=== PATIENT | female | born 1945 | race Caucasian/White ===

== ENCOUNTER 2020-05-19 11:14 | Inpatient (IN) ==
--- NOTE | 2020-05-19 11:31 | Emergency Department Note ---
Fall HPI General Chief Complaint: Fall Stated Complaint: Fall, left leg and hip pain Time Seen by Provider: 05/19/20 11:26 Source: patient, EMS and RN notes reviewed Mode of arrival: EMS History of Present Illness HPI Narrative: Narrative: This patient says she got walking too fast and slipped and fell onto her left hip area. She has pain in this area. Did not hit her head neck or other body part. MD Complaint: fall Onset (ago): minute(s) Fall From: standing Fall Witnessed: yes, by bystander Place Fall Occurred: skilled nursing/SNF Loss of Consciousness: none Prolonged Down Time?: no Symptoms Prior to Fall: none Context: tripped/slipped Location of injury - extremities: Left: thigh Severity: moderate Quality: aching Associated symptoms (after fall): Reports denies Related Data Home Medications Medication Instructions Recorded Confirmed atorvastatin 40 mg tablet 40 mg PO QHS 09/20/19 11/02/19 trazodone 100 mg tablet 100 mg PO QHS 09/20/19 11/02/19 Previous Rx's Medication Instructions Recorded cholecalciferol (vitamin D3) 50 2,000 unit PO BID #60 cap 12/28/15 mcg (2,000 unit) capsule BiPAP w/Supplies #1 yr 12/27/16 budesonide-formoterol HFA 160 2 inh INHALATION .COMPLEX #10.2 g 07/04/17 mcg-4.5 mcg/actuation aerosol inhaler ergocalciferol (vitamin D2) 1,250 50,000 unit PO QWEEK #4 cap 07/30/17 mcg (50,000 unit) capsule clopidogrel 75 mg tablet 75 mg PO QDAY #30 tab 09/05/17 oxybutynin chloride 10 mg 10 mg PO QDAY #30 tab 10/23/17 tablet,extended release 24 hr omeprazole 40 mg capsule,delayed 40 mg PO QDAY #90 cap 01/08/18 release montelukast 10 mg tablet 10 mg PO QDAY #90 tab 01/14/18 losartan 25 mg tablet 25 mg PO QDAY #90 tab 01/30/18 omega-3 acid ethyl esters 1 gram See Rx Instructions .ROUTE 07/21/19 capsule .COMPLEX #120 cap duloxetine 60 mg capsule,delayed 60 mg PO QDAY #30 cap 09/16/19 release hydroxyzine pamoate 25 mg capsule 25 mg PO TID PRN #60 cap 10/13/19 duloxetine 30 mg capsule,delayed 30 mg PO QDAY #30 cap 10/26/19 release memantine 5 mg tablet 5 mg PO BID #60 tab 10/26/19 clonazepam 0.5 mg tablet 0.5 mg PO QID #120 tab 11/02/19 Allergies Allergy/AdvReac Type Severity Reaction Status Date / Time aspirin Allergy Unknown Unknown Verified 11/02/19 11:19 Penicillins Allergy Unknown Unknown Verified 11/02/19 11:19 Sulfa (Sulfonamide Allergy Unknown Unknown Verified 11/02/19 11:19 Antibiotics) codeine derivatives Allergy Unknown Unknown Uncoded 10/26/19 13:23 Review of Systems ROS ROS Narrative: Narrative: All systems ED: reviewed and negative except as stated. PFS Narrative Patient History Narrative: Narrative: Medical/Surgical/Family History All Active Problems (Updated 05/19/20 @ 13:54 by Rogerio Mayfield MD) Panic disorder (Acute) Closed fracture of left hip (Acute) Generalized anxiety disorder (Acute) Major depression, recurrent, chronic (Acute) Depression, major, in partial remission (Acute) Parkinsonian syndrome (Acute) Tardive dyskinesia (Acute) Depression with anxiety (Chronic) Depression with anxiety (Chronic) Cervical disc disorder (Chronic) Orthostatic hypotension (Acute) Herpes zoster (Acute) History of transient ischemic attack (TIA) (Acute) Peripheral vascular disease (Acute) Constipation (Acute) Depression (Chronic) Major depression, chronic (Chronic) Sinusitis (Acute) Bronchitis (Acute) Chronic UTI (Chronic) Post-menopausal (Acute) Contusion, shoulder or upper arm (Acute) Central sleep apnea (Chronic) Obstructive sleep apnea (Chronic) Candidiasis of vagina (Chronic) Disc disorder of lumbar region (Chronic) History of colonoscopy (Chronic 06/26/15) Hypertension, essential (Chronic) Hyperlipemia (Chronic) Gastroesophageal reflux (Chronic) Depressive disorder (Chronic) DJD (degenerative joint disease), cervical (Chronic) Carpal tunnel syndrome (Chronic) Asthma (Chronic) Medical History (Updated 05/19/20 @ 13:54 by Rogerio Mayfield MD) Asthma (Chronic) Candidiasis of vagina (Chronic) Carpal tunnel syndrome (Chronic) (05/17/14-Joaquín) Central sleep apnea (Chronic) Depressive disorder (Chronic) 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 Declines surgery for now Hyperlipemia (Chronic) Hypertension, essential (Chronic) Obstructive sleep apnea (Chronic) Pneumonia (Resolved) Sinusitis (Resolved) Surgical History History of carpal tunnel repair (Resolved 07/26/13) Right History of colonoscopy (Chronic 06/26/15) tubular adenoma Family History Mother , age 86 Parkinson's Disease Father , age 93 Primary malignant neoplasm of lung metastatic to other site Social History Smoking Status: Former smoker Alcohol Intake Frequency: holiday/special occasion only Exam Narrative Narrative: Narrative: She has mild diffuse tenderness about the left hip and left groin region. Head Head: Present atraumatic, normocephalic and normal inspection Eye Eye: Present normal appearance and EOMI; Absent scleral icterus and conjunctival injection ENT ENT: Present normal exam, normal oropharynx and mucous membranes dry Neck Neck: Present normal inspection and full ROM Chest Chest: Present normal inspection and symmetric chest wall rise Respiratory Respiratory: Present normal lung sounds bilaterally; Absent respiratory distress, rales/crackles and wheezes Cardiovascular Cardiovascular: Present regular rate, normal rhythm and normal heart sounds Adbominal Abdominal: Present soft; Absent distention and tenderness Neurological Neurological: Present alert Psychiatric Psychiatric: Present normal affect Skin Skin: Present warm (WNL) and dry; Absent diaphoresis Course Vital Signs Vital signs: Vital Signs Temperature 98.6 F 05/19/20 11:15 Pulse Rate 100 H 05/19/20 11:15 Respiratory Rate 16 05/19/20 11:15 Blood Pressure 151/62 05/19/20 11:15 Pulse Oximetry (%) 97 05/19/20 11:15 Temperature 98.6 F 05/19/20 11:15 Pulse Rate 76 05/19/20 13:42 Respiratory Rate 20 05/19/20 13:42 Blood Pressure 169/95 05/19/20 13:42 Pulse Oximetry (%) 97 05/19/20 13:42 [facility] MDM Narrative Medical decision making narrative: Narrative: I discussed case with Dr. Cui the orthopedist and Dr. Lewis the hospitalist and she will be admitted to the hospital for surgery this afternoon Lab Data Lab results reviewed: Yes I reviewed the patient's lab results. Lab results narrative: Lab work and urine were not very remarkable Result diagrams: 05/19/20 12:17 05/19/20 12:17 Labs: Lab Results 05/19/20 05/19/20 05/19/20 Range/Units 12:12 12:17 12:17 WBC 8.9 (4.5-11.0) K/mcL RBC 4.59 (4.00-5.20) M/mcL Hgb 13.5 (12.0-15.0) g/dL Hct 41.7 (36.0-48.0) % MCV 90.8 (80.0-100.0) fL MCH 29.4 (26.0-34.0) pg MCHC 32.4 (31.0-36.0) g/dL RDW 13.2 (11.5-14.5) % Plt Count 267 (140-440) K/mcL MPV 9.5 (7.4-10.4) fL Neut % (Auto) 78.7 H (38.0-78.0) % Lymph % (Auto) 14.7 L (15.0-49.0) % [place] % (Auto) 5.5 (1.0-12.0) % Eos % (Auto) 0.8 (0.0-7.0) % Baso % (Auto) 0.3 (0.0-2.0) % Lymph # (Auto) 1.31 L (1.50-4.80) K/mcL [place] # (Auto) 0.49 (0.10-0.90) K/mcL Eos # (Auto) 0.07 (0.00-0.70) K/mcL Baso # (Auto) 0.03 (0.00-0.20) K/mcL Absolute Neutrophils 6.99 (1.80-8.00) K/mcL Sodium 138 (133-145) mmol/L Potassium 3.5 (3.3-5.1) mmol/L Chloride 98 (96-108) mmol/L Carbon Dioxide 32 H (22-30) mmol/L Anion Gap 8.0 (8.0-16.0) BUN 7 L (8-23) mg/dL Creatinine 0.8 (0.6-1.1) mg/dL GFR Calculation 71 Glucose 94 (70-105) mg/dL Calcium 10.3 (8.6-10.4) mg/dL Total Bilirubin 0.3 (0.1-1.0) mg/dL AST 21 (<32) U/L ALT 20 (<40) U/L Alkaline Phosphatase 99 (39-117) U/L Total Protein 7.1 (5.9-8.4) gm/dL Albumin 4.6 (3.2-5.2) gm/dL Globulin 2.5 (2.2-3.7) gm/dL Albumin/Globulin Ratio 1.8 (1.0-2.3) Urine Color Straw Urine Appearance Clear (Clear) Urine pH 8.0 (5.0-9.0) Ur Specific [place] 1.005 (1.000-1.035) Urine Protein Negative (Negative) mg/dL Urine Glucose (UA) Negative (Negative) mg/dL Urine Ketones Negative (Negative) mg/dL Urine Occult Blood Negative (Negative) mg/dL Urine Nitrate Negative (Negative) Urine Bilirubin Negative (Negative) mg/dL Urine Urobilinogen Negative mg/dL Ur Leukocyte Esterase 25 A (Negative) /ug Urine RBC < 1 (0-1) /hpf Urine WBC 4 (0-4) /hpf Ur Squamous Epith Cells 1 (0-4) /hpf Urine Bacteria None (0) /hpf Urine Mucus Few A (None) /hpf Ur Culture Indicated? No Radiology Data Radiology results narrative: The left hip does show a nondisplaced femoral neck fracture chest x-ray was negative EKG Data EKG #1: EKG attestation: Yes I reviewed and interpreted this EKG. and Yes There are no EKG findings of acute coronary syndrome EKG shows normal: sinus rhythm Rate: normal Rhythm: NSR Discharge Plan Patient/Caregiver Discharge Instructions Pt seen by INVOICE CHECKER/PA only: No Clinical Impression: Closed fracture of left hip Patient Disposition: Xfer As Inpt ([facility]) Follow up with: Jaswinder Mac MD [Primary Care Provider] - Prescriptions: No Action atorvastatin 40 mg tablet 40 mg PO QHS RF: 0 trazodone 100 mg tablet 100 mg PO QHS RF: 0 omega-3 acid ethyl esters [Lovaza] 1 gram capsule See Rx Instructions .ROUTE .COMPLEX Qty: 120 RF: 0 clonazepam 0.5 mg tablet 0.5 mg PO QID Qty: 120 RF: 0 duloxetine 30 mg capsule,delayed release(DR/EC) 30 mg PO QDAY Qty: 30 RF: 0 memantine 5 mg tablet 5 mg PO BID Qty: 60 RF: 0 hydroxyzine pamoate [Vistaril] 25 mg capsule 25 mg PO TID PRN (Reason: anxiety) Qty: 60 RF: 0 cholecalciferol (vitamin D3) 2,000 unit capsule 2,000 unit PO BID Qty: 60 RF: 0 (DME) BiPAP w/Supplies Qty: 1 RF: 0 budesonide-formoterol 160-4.5 mcg/actuation HFA aerosol inhaler 2 inh INHALATION .COMPLEX Qty: 10.2 RF: 12 ergocalciferol (vitamin D2) 50,000 unit capsule 50,000 unit PO QWEEK Qty: 4 RF: 12 clopidogrel 75 mg tablet 75 mg PO QDAY Qty: 30 RF: 12 oxybutynin chloride 10 mg tablet extended release 24hr 10 mg PO QDAY Qty: 30 RF: 12 omeprazole 40 mg capsule,delayed release(DR/EC) 40 mg PO QDAY Qty: 90 RF: 3 montelukast 10 mg tablet 10 mg PO QDAY Qty: 90 RF: 3 duloxetine 60 mg capsule,delayed release(DR/EC) 60 mg PO QDAY Qty: 30 RF: 2 losartan 25 mg tablet 25 mg PO QDAY Qty: 90 RF: 3
[2020-05-19] MEDS ORDERED: HYDROmorphone 0.5 MG/0.5 ML SYRINGE IV PRN ×2 (11:56→16:24)
--- NOTE | 2020-05-19 12:14 | XRay Report ---
INDICATION: trauma TECHNIQUE: AP pelvis. AP and crosstable lateral left hip COMPARISON: None. FINDINGS: Transcervical left femoral neck fracture. There is slight superior subluxation. Pelvis and right hip are negative. No other fractures. Sacrum is negative IMPRESSION: Transcervical left hip fracture Interpreted and Authenticated by: Nghia Mcdermott 05/19/20
--- NOTE | 2020-05-19 12:15 | XRay Report ---
INDICATION: pre surgery TECHNIQUE: AP portable semiupright chest x-ray COMPARISON: None FINDINGS: Lungs:Linear densities at the left lung base are probably stable since 2016. Appearance is consistent with mild scarring. Lungs are otherwise negative. No parenchymal consolidation. No discrete mass. Heart, vascular:No significant cardiomegaly. Pulmonary vascularity is normal. No pulmonary edema or pulmonary congestion Mediastinum, damián:No mediastinal widening. No hilar mass Pleura:No pleural fluid. No pleural-based mass or calcification Skeletal:Negative. IMPRESSION: 1. Findings consistent with mild left basilar scarring 2. No acute abnormality Interpreted and Authenticated by: Nghia Mcdermott 05/19/20
[2020-05-19] MEDS: LACTATED RINGERS 1,000 ML IV SCH ×3 (12:24→17:48)
[2020-05-19 12:58] LABS: Appearance,Urine CLEAR (Clear); Bilirubin,Urine Negative (Negative); Color,Urine STRAW; Culture Indicated,Urine No; Glucose,Urine (UA) Negative (Negative); Ketones,Urine Negative (Negative); Leukocyte Esterase,Urine 25 /ug (Negative); Mucus,Urine FEW /hpf; Nitrate,Urine Negative (Negative); Protein,Urine Negative (Negative); Specific Gravity,Urine 1.005 (1.000-1.035); Urine Blood Negative (Negative); Urine RBC < 1 /hpf (0-1); Urine Squamous Epithelial Cell 1 /hpf (0-4); Urine WBC 4 /hpf (0-4); Urobilinogen,Urine Negative
[2020-05-19 13:04] LABS: Basophils # (Auto) 0.03 K/mcL (0.00-0.20); Basophils % (Auto) 0.3 % (0.0-2.0); Eosinophils # (Auto) 0.07 K/mcL (0.00-0.70); Eosinophils % (Auto) 0.8 % (0.0-7.0); Hematocrit 41.7 % (36.0-48.0); Hemoglobin 13.5 g/dL (12.0-15.0); Lymphocytes # (Auto) 1.31 K/mcL (1.50-4.80); Lymphocytes % (Auto) 14.7 % (15.0-49.0); Mean Cell Volume 90.8 fL (80.0-100.0); Mean Corpuscular HGB Conc 32.4 g/dL (31.0-36.0); Mean Platelet Volume 9.5 fL (7.4-10.4); Monocytes # (Auto) 0.49 K/mcL (0.10-0.90); Monocytes % (Auto) 5.5 % (1.0-12.0); Neutrophils % (Auto) 78.7 % (38.0-78.0); Platelet Count 267 K/mcL (140-440); RBC 4.59 M/mcL (4.00-5.20); Red Cell Distribution Width 13.2 % (11.5-14.5); WBC 8.9 K/mcL (4.5-11.0)
[2020-05-19 13:22] LABS: ALT/SGPT 20 U/L (<40); AST/SGOT 21 U/L (<32); Albumin 4.6 gm/dL (3.2-5.2); Albumin/Globulin Ratio 1.8 (1.0-2.3); Alkaline Phosphatase 99 U/L (39-117); Bilirubin,Total 0.3 mg/dL (0.1-1.0); Blood Urea Nitrogen 7 mg/dL (8-23); Calcium 10.3 mg/dL (8.6-10.4); Carbon Dioxide 32 mmol/L (22-30); Chloride 98 mmol/L (96-108); Globulin 2.5 gm/dL (2.2-3.7); Glomerular Filtration Rate 71; Glucose 94 mg/dL (70-105)
--- NOTE | 2020-05-19 13:56 | Internal Med History&Physical ---
HPI History of Present Illness Patient information: Note initiated : 05/19/20 at 1:56 pm Service Date, if different from initiated Date: [] Patient: Mayra Chacon a 74 y/o F admitted on for Fall - Lt Leg/Hip Pain. Chief Complaint: Fall/left hip pain History of present illness: Ms. Chacon is a 74 year old F with a history of COPD/anxiety/TIA/HTN/dementia who presents to the ER following a mechanical fall at home. Patient apparently tripped and fell landing on her left side experiencing severe pain. She was brought into the ER for evaluation. Patient denies any precipitating events including lightheadedness, thunderclap headache, double vision or loss of consciousness or seizure episode. Initial work-up in the ER was consistent with left hip fracture. Orthopedic was consulted and patient was taken to surgery from ER. Hospitalist service was consulted postoperative for management of medical issues/admission for continued care Patient was seen immediately postoperative in stable state. She is alert and able to answer questions. She endorses history as above. She denies chest pain, lightheadedness, unilateral weakness. She denies recent hospitalization. She denies fever chills or Covid exposure Review of systems 10 point review system was performed and is negative except for ones discussed above PFSH PFSH All Active Problems (Updated 05/19/20 @ 13:54 by Rogerio Mayfield MD) Panic disorder (Acute) Closed fracture of left hip (Acute) Generalized anxiety disorder (Acute) Major depression, recurrent, chronic (Acute) Depression, major, in partial remission (Acute) Parkinsonian syndrome (Acute) Tardive dyskinesia (Acute) Depression with anxiety (Chronic) Depression with anxiety (Chronic) Cervical disc disorder (Chronic) Orthostatic hypotension (Acute) Herpes zoster (Acute) History of transient ischemic attack (TIA) (Acute) Peripheral vascular disease (Acute) Constipation (Acute) Depression (Chronic) Major depression, chronic (Chronic) Sinusitis (Acute) Bronchitis (Acute) Chronic UTI (Chronic) Post-menopausal (Acute) Contusion, shoulder or upper arm (Acute) Central sleep apnea (Chronic) Obstructive sleep apnea (Chronic) Candidiasis of vagina (Chronic) Disc disorder of lumbar region (Chronic) History of colonoscopy (Chronic 06/26/15) Hypertension, essential (Chronic) Hyperlipemia (Chronic) Gastroesophageal reflux (Chronic) Depressive disorder (Chronic) DJD (degenerative joint disease), cervical (Chronic) Carpal tunnel syndrome (Chronic) Asthma (Chronic) Medical History (Updated 05/19/20 @ 13:54 by Rogerio Mayfield MD) Asthma (Chronic) Candidiasis of vagina (Chronic) Carpal tunnel syndrome (Chronic) (05/17/14-Joaquín) Central sleep apnea (Chronic) Depressive disorder (Chronic) 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 Declines surgery for now Hyperlipemia (Chronic) Hypertension, essential (Chronic) Obstructive sleep apnea (Chronic) Pneumonia (Resolved) Sinusitis (Resolved) Surgical History History of carpal tunnel repair (Resolved 07/26/13) Right History of colonoscopy (Chronic 06/26/15) tubular adenoma Family History Mother , age 86 Parkinson's Disease Father , age 93 Primary malignant neoplasm of lung metastatic to other site Social History (Updated 11/02/19 @ 12:41 by Ginna Richards DO) smoking status: Former smoker quit status: not considering quitting alcohol intake frequency: holiday/special occasion only MEDS/ALLERGIES Home Medications and Allergies Home Medications Medication Instructions Recorded Confirmed Type cholecalciferol (vitamin D3) 50 2,000 unit PO BID #60 cap 12/28/15 05/19/20 Rx mcg (2,000 unit) capsule BiPAP w/Supplies #1 yr 12/27/16 11/02/19 Rx budesonide-formoterol HFA 160 2 inh INHALATION .COMPLEX #10.2 g 07/04/17 05/19/20 Rx mcg-4.5 mcg/actuation aerosol inhaler ergocalciferol (vitamin D2) 1,250 50,000 unit PO QWEEK #4 cap 07/30/17 11/02/19 Rx mcg (50,000 unit) capsule clopidogrel 75 mg tablet 75 mg PO QDAY #30 tab 09/05/17 05/19/20 Rx oxybutynin chloride 10 mg 10 mg PO QDAY #30 tab 10/23/17 05/19/20 Rx tablet,extended release 24 hr omeprazole 40 mg capsule,delayed 40 mg PO QDAY #90 cap 01/08/18 05/19/20 Rx release montelukast 10 mg tablet 10 mg PO QDAY #90 tab 01/14/18 05/19/20 Rx losartan 25 mg tablet 25 mg PO QDAY #90 tab 01/30/18 05/19/20 Rx omega-3 acid ethyl esters 1 gram See Rx Instructions .ROUTE 07/21/19 11/02/19 Rx capsule .COMPLEX #120 cap duloxetine 60 mg capsule,delayed 60 mg PO QDAY #30 cap 09/16/19 05/19/20 Rx release atorvastatin 40 mg tablet 40 mg PO QHS 09/20/19 05/19/20 History trazodone 100 mg tablet 100 mg PO QHS 09/20/19 05/19/20 History hydroxyzine pamoate 25 mg capsule 25 mg PO TID PRN #60 cap 10/13/19 05/19/20 Rx duloxetine 30 mg capsule,delayed 30 mg PO QDAY #30 cap 10/26/19 11/02/19 Rx release memantine 5 mg tablet 5 mg PO BID #60 tab 10/26/19 05/19/20 Rx clonazepam 0.5 mg tablet 0.5 mg PO QID #120 tab 11/02/19 05/19/20 Rx hydrocodone-acetaminophen 1 - 2 tab PO Q4H PRN #60 tab 05/19/20 Rx Allergies Allergy/AdvReac Type Severity Reaction Status Date / Time aspirin Allergy Unknown Unknown Verified 11/02/19 11:19 Penicillins Allergy Unknown Unknown Verified 11/02/19 11:19 Sulfa (Sulfonamide Allergy Unknown Unknown Verified 11/02/19 11:19 Antibiotics) codeine derivatives Allergy Unknown Unknown Uncoded 10/26/19 13:23 EXAM Constitutional Vitals: Temp Pulse Resp BP Pulse Ox 98.6 F 76 20 169/95 97 05/19/20 11:15 05/19/20 13:42 05/19/20 13:42 05/19/20 13:42 05/19/20 13:42 Immediately postop drowsy nondistressed Head normocephalic Oral cavity moist No ear nose discharge Eye movement symmetrical Neck supple no lymphadenopathy S1-S2 occasionally irregular Nonlabored breathing Nondistended nontender abdomen Left hip postop dressing. Lower extremity no cyanosis clubbing or joint swelling Skin no suspicious lesion Psych slightly drowsy but responds to verbal commands. No hallucinations Neuro normal higher function DATA Data Completed and Pending Labs: Labs from last 24 hours 05/19/20 05/19/20 05/19/20 12:17 12:17 12:12 WBC 8.9 RBC 4.59 Hgb 13.5 Hct 41.7 MCV 90.8 MCH 29.4 MCHC 32.4 RDW 13.2 Plt Count 267 MPV 9.5 Neut % (Auto) 78.7 H Lymph % (Auto) 14.7 L [place] % (Auto) 5.5 Eos % (Auto) 0.8 Baso % (Auto) 0.3 Lymph # (Auto) 1.31 L [place] # (Auto) 0.49 Eos # (Auto) 0.07 Baso # (Auto) 0.03 Absolute Neutrophils 6.99 Sodium 138 Potassium 3.5 Chloride 98 Carbon Dioxide 32 H Anion Gap 8.0 BUN 7 L Creatinine 0.8 GFR Calculation 71 Glucose 94 Calcium 10.3 Total Bilirubin 0.3 AST 21 ALT 20 Alkaline Phosphatase 99 Total Protein 7.1 Albumin 4.6 Globulin 2.5 Albumin/Globulin Ratio 1.8 Urine Color Straw Urine Appearance Clear Urine pH 8.0 Ur Specific [place] 1.005 Urine Protein Negative Urine Glucose (UA) Negative Urine Ketones Negative Urine Occult Blood Negative Urine Nitrate Negative Urine Bilirubin Negative Urine Urobilinogen Negative Ur Leukocyte Esterase 25 A Urine RBC < 1 Urine WBC 4 Ur Squamous Epith Cells 1 Urine Bacteria None Urine Mucus Few A Ur Culture Indicated? No A/P Narrative A/P Narrative: * Left hip fracture-immediate postop. Managed per orthopedics. * Pain management-per orthopedics Hospitalist consult for management of medical issues * History of hypertension continue losartan * History depressio/anxiety-continue clonazepam/duloxetine/trazodone * GERD continue GI * History dementia continue memantine * History of reactive disease continue bronchodilators * History of TIA continue statin/Plavix(start 24-hour postoperative) * Prophylaxis as per orthopedics Plan * Continue pre-existing medical condition management on home meds as above * Postoperative care/pain management/DVT prophylaxis as per orthopedics * Aggressive postoperative rehab * Case management to coordinate placement/discharge planning Time Spent With Patient Time: Total time spent is greater than 50% in coordination of care (as documented) at patient's floor/unit and/or counseling patient:
--- NOTE | 2020-05-19 14:29 | Orthopedic History & Physical ---
HPI History of Present Illness Patient information: Note initiated : 05/19/20 at 2:12 pm Service Date, if different from initiated Date: [] Patient: Mayra Chacon a 74 y/o F admitted on for Fall - Lt Leg/Hip Pain. Chief Complaint: [s/p fall w/ left hip fracture ] History of present illness: Ms. Chacon is a 74 year old female who was ambu lating at her own home when she experienced a mechanical fall striking her left hip. She denies head strike or loss of conciousness, dizziness or syncope. She is a former smoker having quit in july of last year and occasionally uses alcohol. She denies chronic health conditions, however medication list includes Plavix. Mayra is not usre why she takes plavix and denies hx of stroke, atrial fibrillation, blood clots or stent placement. On exam the patient is resting in bed in discomfort and some mild distress over the possibility she "may lose her apartment. patient oropharynx is moist non-swollen and non-erythemematous. Neck is supple without JVD Heart is regular rythum without gallops and lungs are clear to auscultation bilaterally. patient is able to move all extremities and all four are neurovascularly intact. The left lower extremity ROM is limited by pain and is tender to palpation about the left hip. skin is warm dry and without echymosis. X-rays obtained in the emergency room demonstrate a midcervical fracture of the left hip. Plan is for open reduction internal fixation of the left hip operatively by Dr. Chao this afternoon via percutaneous hip nail procedure. The patient was presented with options for management including non-operative and ORIF. The patient is currently interested in surgery with the above plan which will occur emergently. Surgical risks were explained to Mayra including pain, bleeding , infection, implant failure, need for further surgery, blood clots including pulmonary embolus and DVT, pulmonary, cardiac and stroke. Also anesthesia reactions and including or not waking from surgery. The patient understands these risks and wishes to proceed. PFSH PFSH All Active Problems (Updated 05/19/20 @ 13:54 by Rogerio Mayfield MD) Panic disorder (Acute) Closed fracture of left hip (Acute) Generalized anxiety disorder (Acute) Major depression, recurrent, chronic (Acute) Depression, major, in partial remission (Acute) Parkinsonian syndrome (Acute) Tardive dyskinesia (Acute) Depression with anxiety (Chronic) Depression with anxiety (Chronic) Cervical disc disorder (Chronic) Orthostatic hypotension (Acute) Herpes zoster (Acute) History of transient ischemic attack (TIA) (Acute) Peripheral vascular disease (Acute) Constipation (Acute) Depression (Chronic) Major depression, chronic (Chronic) Sinusitis (Acute) Bronchitis (Acute) Chronic UTI (Chronic) Post-menopausal (Acute) Contusion, shoulder or upper arm (Acute) Central sleep apnea (Chronic) Obstructive sleep apnea (Chronic) Candidiasis of vagina (Chronic) Disc disorder of lumbar region (Chronic) History of colonoscopy (Chronic 06/26/15) Hypertension, essential (Chronic) Hyperlipemia (Chronic) Gastroesophageal reflux (Chronic) Depressive disorder (Chronic) DJD (degenerative joint disease), cervical (Chronic) Carpal tunnel syndrome (Chronic) Asthma (Chronic) Medical History (Updated 05/19/20 @ 13:54 by Rogerio Mayfield MD) Asthma (Chronic) Candidiasis of vagina (Chronic) Carpal tunnel syndrome (Chronic) (05/17/14-Joaquín) Central sleep apnea (Chronic) Depressive disorder (Chronic) 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 Declines surgery for now Hyperlipemia (Chronic) Hypertension, essential (Chronic) Obstructive sleep apnea (Chronic) Pneumonia (Resolved) Sinusitis (Resolved) Surgical History History of carpal tunnel repair (Resolved 07/26/13) Right History of colonoscopy (Chronic 06/26/15) tubular adenoma Family History Mother , age 86 Parkinson's Disease Father , age 93 Primary malignant neoplasm of lung metastatic to other site Social History (Updated 11/02/19 @ 12:41 by Ginna Richards DO) smoking status: Former smoker quit status: not considering quitting alcohol intake frequency: holiday/special occasion only MEDS/ALLERGIES Home Medications and Allergies Home Medications Medication Instructions Recorded Confirmed Type cholecalciferol (vitamin D3) 50 2,000 unit PO BID #60 cap 12/28/15 05/19/20 Rx mcg (2,000 unit) capsule BiPAP w/Supplies #1 yr 12/27/16 11/02/19 Rx budesonide-formoterol HFA 160 2 inh INHALATION .COMPLEX #10.2 g 07/04/17 05/19/20 Rx mcg-4.5 mcg/actuation aerosol inhaler ergocalciferol (vitamin D2) 1,250 50,000 unit PO QWEEK #4 cap 07/30/17 11/02/19 Rx mcg (50,000 unit) capsule clopidogrel 75 mg tablet 75 mg PO QDAY #30 tab 09/05/17 05/19/20 Rx oxybutynin chloride 10 mg 10 mg PO QDAY #30 tab 10/23/17 05/19/20 Rx tablet,extended release 24 hr omeprazole 40 mg capsule,delayed 40 mg PO QDAY #90 cap 01/08/18 05/19/20 Rx release montelukast 10 mg tablet 10 mg PO QDAY #90 tab 01/14/18 05/19/20 Rx losartan 25 mg tablet 25 mg PO QDAY #90 tab 01/30/18 05/19/20 Rx omega-3 acid ethyl esters 1 gram See Rx Instructions .ROUTE 07/21/19 11/02/19 Rx capsule .COMPLEX #120 cap duloxetine 60 mg capsule,delayed 60 mg PO QDAY #30 cap 09/16/19 05/19/20 Rx release atorvastatin 40 mg tablet 40 mg PO QHS 09/20/19 05/19/20 History trazodone 100 mg tablet 100 mg PO QHS 09/20/19 05/19/20 History hydroxyzine pamoate 25 mg capsule 25 mg PO TID PRN #60 cap 10/13/19 05/19/20 Rx duloxetine 30 mg capsule,delayed 30 mg PO QDAY #30 cap 10/26/19 11/02/19 Rx release memantine 5 mg tablet 5 mg PO BID #60 tab 10/26/19 05/19/20 Rx clonazepam 0.5 mg tablet 0.5 mg PO QID #120 tab 11/02/19 05/19/20 Rx Allergies Allergy/AdvReac Type Severity Reaction Status Date / Time aspirin Allergy Unknown Unknown Verified 11/02/19 11:19 Penicillins Allergy Unknown Unknown Verified 11/02/19 11:19 Sulfa (Sulfonamide Allergy Unknown Unknown Verified 11/02/19 11:19 Antibiotics) codeine derivatives Allergy Unknown Unknown Uncoded 10/26/19 13:23 Results Labs Result Diagrams: 05/19/20 12:17 05/19/20 12:17 Labs: Abnormal lab results 05/19/20 05/19/20 05/19/20 Range/Units 12:12 12:17 12:17 Neut % (Auto) 78.7 H (38.0-78.0) % Lymph % (Auto) 14.7 L (15.0-49.0) % Lymph # (Auto) 1.31 L (1.50-4.80) K/mcL Carbon Dioxide 32 H (22-30) mmol/L BUN 7 L (8-23) mg/dL Ur Leukocyte Esterase 25 A (Negative) /ug Urine Mucus Few A (None) /hpf H & H 05/19/20 Range/Units 12:17 Hgb 13.5 (12.0-15.0) g/dL Hct 41.7 (36.0-48.0) % All other labs normal. A/P Time Spent With Patient Time: Total time spent is greater than 50% in coordination of care (as documented) at patient's floor/unit and/or counseling patient:
[2020-05-19] MEDS ORDERED: GLYCOPYRROLATE 0.2 MG/ML VIAL IV ONE (14:44)
[2020-05-19] MEDS ORDERED: DEXAMETHASONE 10 MG/ML VIAL ONE (14:44)
[2020-05-19] MEDS ORDERED: MIDAZOLAM HCL 2 MG/ML ORAL.SOL PO ONE (14:44)
[2020-05-19] MEDS ORDERED: ONDANSETRON 4 MG/2 ML VIAL ONE (14:44)
[2020-05-19] MEDS ORDERED: KETAMINE HCL 50 MG/ML ML ONE (14:44)
[2020-05-19] MEDS ORDERED: PROPOFOL 200 MG/20 ML VIAL IV ONE (14:44)
[2020-05-19] MEDS ORDERED: ceFAZolin 2 GM in DEXTROSE 5% IN WATER 50 ML IV SCH ×2 (14:45→16:24)
[2020-05-19] MEDS ORDERED: IPRATROPIUM/ALBUTEROL 3 ML AMPUL.NEB NEB PRN ×2 (15:28→16:24)
[2020-05-19] MEDS ORDERED: ONDANSETRON 4 MG/2 ML VIAL IV PRN ×2 (15:33→16:24)
[2020-05-19] MEDS ORDERED: ACETAMINOPHEN 1,000 MG/100 ML BOTTLE IV ONE (15:33)
[2020-05-19] MEDS ORDERED: MEPERIDINE 25 MG/ML SYRINGE IV PRN (15:33)
--- NOTE | 2020-05-19 15:35 | General Surgery Procedure Note ---
Date of procedure: Note initiated : 05/19/20 at 3:34 pm Service Date, if different from initiated Date: [] Pre-op diagnosis: left hip femoral neck fracture valgus impacted Post-op diagnosis: same Procedure: left hip closed reduction, percutaneous screw fixation Anesthesia: EFREM Surgeon: Nghia Cui Chief Information Officer: Aristides Moreno Estimated blood loss: 25 Pathology: none sent Condition: stable Disposition: PACU
[2020-05-19] MEDS ORDERED: morphine 4 MG/ML VIAL IV PRN (15:37)
[2020-05-19] MEDS ORDERED: POLYETHYLENE GLYCOL 3350 17 GM PACKET PO PRN ×2 (15:37→16:24)
[2020-05-19] MEDS ORDERED: HYDROcodone/APAP 10/325MG TABLET PO PRN (15:37)
[2020-05-19] MEDS ORDERED: BISACODYL 10 MG SUPP.RECT PR PRN ×2 (15:37→16:24)
[2020-05-19] MEDS ORDERED: FLEETS ADULT ENEMA PR PRN (15:37)
[2020-05-19] MEDS ORDERED: BENZOCAINE/MENTHOL 1 LOZENGE PO PRN (15:37)
[2020-05-19] MEDS ORDERED: MAGNESIUM HYDROXIDE 30 ML ORAL.SUSP PO PRN (15:37)
--- NOTE | 2020-05-19 15:40 | Discharge Plan ---
DC Instructions-General Patient Instructions Dressing Care: May shower in 2 days Discharge Plan Patient/Caregiver Discharge Instructions Activity: ambulate only with your walker, as per physical therapy and other Diet: Regular Diet Prescriptions: New hydrocodone-acetaminophen 10-325 mg Tablet 1 - 2 tab PO Q4H PRN (Reason: Pain) Qty: 60 RF: 0 No Action atorvastatin 40 mg tablet 40 mg PO QHS RF: 0 trazodone 100 mg tablet 100 mg PO QHS RF: 0 omega-3 acid ethyl esters [Lovaza] 1 gram capsule See Rx Instructions .ROUTE .COMPLEX Qty: 120 RF: 0 clonazepam 0.5 mg tablet 0.5 mg PO QID Qty: 120 RF: 0 duloxetine 30 mg capsule,delayed release(DR/EC) 30 mg PO QDAY Qty: 30 RF: 0 memantine 5 mg tablet 5 mg PO BID Qty: 60 RF: 0 hydroxyzine pamoate [Vistaril] 25 mg capsule 25 mg PO TID PRN (Reason: anxiety) Qty: 60 RF: 0 cholecalciferol (vitamin D3) 2,000 unit capsule 2,000 unit PO BID Qty: 60 RF: 0 (DME) BiPAP w/Supplies Qty: 1 RF: 0 budesonide-formoterol 160-4.5 mcg/actuation HFA aerosol inhaler 2 inh INHALATION .COMPLEX Qty: 10.2 RF: 12 ergocalciferol (vitamin D2) 50,000 unit capsule 50,000 unit PO QWEEK Qty: 4 RF: 12 clopidogrel 75 mg tablet 75 mg PO QDAY Qty: 30 RF: 12 oxybutynin chloride 10 mg tablet extended release 24hr 10 mg PO QDAY Qty: 30 RF: 12 omeprazole 40 mg capsule,delayed release(DR/EC) 40 mg PO QDAY Qty: 90 RF: 3 montelukast 10 mg tablet 10 mg PO QDAY Qty: 90 RF: 3 duloxetine 60 mg capsule,delayed release(DR/EC) 60 mg PO QDAY Qty: 30 RF: 2 losartan 25 mg tablet 25 mg PO QDAY Qty: 90 RF: 3 Other Ambulatory Orders: OT Discharge Order (Routine) Location: None Selected Ordered By: Nghia Cui Physical Therapy DC - General (Routine) Location: None Selected Ordered By: Nghia Cui Follow Up Plan Follow up with: Jaswinder Mac MD [Primary Care Provider] - Patient Disposition: Xfer SNF Rehab Potential: Good I certify that the patient requires SNF services: Yes Overall status at discharge: patient is progressing back to baseline Discharge Orders: Discharge Order (Routine); Ordered 05/22/20 Ordered By: Nghia Cui Discharge Comment: chief complaint: left hip fracture
[2020-05-19] MEDS ORDERED: LACTATED RINGERS 1,000 ML IV SCH (15:45)
[2020-05-19] MEDS: fentaNYL 100 MCG/2 ML VIAL IV PRN ×2 (15:55→15:57)
--- NOTE | 2020-05-19 16:01 | XRay Report ---
INDICATION: Left hip pinning TECHNIQUE: 1.4 minutes fluoroscopy utilized by Dr. Cui. 20.6 mGy exposure. Intraoperative spot films were obtained COMPARISON: Previous left hip x-ray dated 05/19/2020 FINDINGS: Spot films demonstrate screws within the left femoral neck and head. Alignment is anatomic IMPRESSION: Intraoperative fluoroscopy and spot films utilized during pinning of a left hip fracture Interpreted and Authenticated by: Nghia Mcdermott 05/19/20
--- NOTE | 2020-05-19 16:23 | Operative Note ---
DATE OF OPERATION: 05/19/2020 PREOPERATIVE DIAGNOSIS: Left valgus impacted femoral neck fracture. POSTOPERATIVE DIAGNOSIS: Left valgus impacted femoral neck fracture. PROCEDURE PERFORMED: Closed reduction and percutaneous screw fixation of the left femoral neck fracture. SURGEON: Christine Cui M.D. CLAY HOUSE WORKER: Fady Moreno PA-C. The PA's assistance was required for the safe and efficient completion of the entire case. This providers expertise and technical skill were required throughout the case. The PA assisted with preoperative coordination, intraoperative retraction, wound closure, dressing and splint application, as well as postoperative documentation and care coordination. ANESTHESIA: General. FINDINGS: Valgus impacted femoral neck fracture. IMPLANTS: [place] 8.0 mm cannulated partially-threaded screws size 95 x1, size 90 x2. SPECIMENS: None. COMPLICATIONS: None. DRAINS: None. DISPOSITION: To PACU in stable condition. INDICATIONS: The patient is a 74-year-old female. She fell today and sustained a valgus impacted femoral neck fracture. We talked about different options and felt that surgical intervention would be the best option at this point and she wished to proceed. I spoke with her The risks and benefits were discussed with the patient in detail including, but not limited to, the risks of anesthesia, problems with the heart or lungs related to anesthesia, infection, compromise or injury to the nerves and blood vessels, deep venous thrombosis, pulmonary embolism, pneumonia, continued pain after surgery, worsening pain or symptoms after surgery, swelling, loss of motion, need for repeat surgery, hardware failure, re-tear or failure of repair site, malunion, nonunion, and hardware pain requiring future removal. DESCRIPTION OF PROCEDURE: The patient was seen preoperatively where all questions were answered and the correct side and site were identified and marked. She was then transferred to the operating room and given 2 grams of Ancef and general anesthesia was administered without complication. She was placed on the Spring table with all prominences well padded. She was prepped and draped in the usual fashion with a wall drape. C-arm was brought in to confirm the fracture was anatomically reduced. I made a small 2.5 cm incision along the lateral femur. I placed three screws in an inverted triangle fashion. The first just above the calcar and in the center-center position of the head. The additional two were anterior and posterior and superior creating an inverted triangle. I measured a 95 distally and 90 proximally. We overreamed and then placed the three screws with good compression. Radiographs confirmed that the fracture was anatomically aligned and hardware was in good position. We then thoroughly irrigated,. We closed the deep layer with 0 Vicryl. The subcutaneous layer was closed with 3-0 Vicryl and the skin was closed with micah. She was dressed with Xeroform, 4 x 4's, ABD, and Medipore tape. She was then extubated and transferred to the stretcher and taken to PACU in stable condition. ASHOK:champ Job ID: [id number] Doc ID: [id number] Christine Cui MD
[2020-05-19] MEDS ORDERED: ONDANSETRON 4 MG ODT TABLET SL PRN (16:24)
[2020-05-19] MEDS ORDERED: POTASSIUM CHLORIDE 20 MEQ PACKET PO PRN (16:24)
[2020-05-19] MEDS ORDERED: MELATONIN 3 MG TABLET PO PRN (16:24)
[2020-05-19] MEDS ORDERED: CALCIUM CHLORIDE 1,000 MG/10 ML SYRINGE IV PRN (16:24)
[2020-05-19] MEDS ORDERED: hydrALAZINE 20 MG/ML VIAL IV PRN (16:24)
[2020-05-19] MEDS ORDERED: MAGNESIUM SULFATE 2 GM/50 ML BAG IV PRN (16:24)
[2020-05-19] MEDS ORDERED: POTASSIUM CHLORIDE 40 MEQ in DEXTROSE 5% IN WATER 500 ML IV PRN (16:24)
[2020-05-19] MEDS ORDERED: ACETAMINOPHEN 650 MG/65 ML BOTTLE IV PRN (16:24)
[2020-05-19] MEDS ORDERED: METOPROLOL TARTRATE 5 MG/5 ML VIAL IV PRN (16:24)
[2020-05-19] MEDS: 0.9 % SODIUM CHLORIDE 1,000 ML IV SCH (16:46)
[2020-05-19] MEDS: 0.9 % SODIUM CHLORIDE 10 ML SYRINGE IV SCH ×2 (17:47→20:59)
[2020-05-19] MEDS: SENNOSIDES 1 TABLET PO SCH (20:55)
[2020-05-19] MEDS: VITAMIN D3 1,000 UNIT TABLET PO SCH (20:55)
[2020-05-19] MEDS: DOCUSATE SODIUM 100 MG CAPSULE PO SCH (20:55)
[2020-05-19] MEDS: MEMANTINE 10 MG TABLET PO SCH (20:55)
[2020-05-19] MEDS: ATORVASTATIN 40 MG TABLET PO SCH (20:56)
[2020-05-19] MEDS: traZODone HCL 100 MG TABLET PO SCH (20:56)
[2020-05-19] MEDS: clonazePAM 0.5 MG TABLET PO SCH (20:56)
[2020-05-19] MEDS ORDERED: DOCUSATE SODIUM 100 MG CAPSULE PO SCH (21:00)
[2020-05-19] MEDS ORDERED: SENNOSIDES/DOCUSATE SODIUM 1 TAB TABLET PO SCH (21:00)
[2020-05-19] MEDS: BUDESONIDE 0.5 MG/2 ML AMPUL.NEB NEB SCH (21:26)
[2020-05-20] MEDS: LACTATED RINGERS 1,000 ML IV SCH ×2 (02:00→18:22)
[2020-05-20 07:11] LABS: Basophils # (Auto) 0.02 K/mcL (0.00-0.20); Basophils % (Auto) 0.2 % (0.0-2.0); Eosinophils # (Auto) 0.03 K/mcL (0.00-0.70); Eosinophils % (Auto) 0.3 % (0.0-7.0); Hematocrit 36.6 % (36.0-48.0); Hemoglobin 11.9 g/dL (12.0-15.0); Lymphocytes # (Auto) 0.84 K/mcL (1.50-4.80); Lymphocytes % (Auto) 7.6 % (15.0-49.0); Mean Cell Volume 90.6 fL (80.0-100.0); Mean Corpuscular HGB Conc 32.5 g/dL (31.0-36.0); Mean Platelet Volume 9.5 fL (7.4-10.4); Monocytes # (Auto) 0.59 K/mcL (0.10-0.90); Monocytes % (Auto) 5.3 % (1.0-12.0); Neutrophils % (Auto) 86.6 % (38.0-78.0); Platelet Count 246 K/mcL (140-440); RBC 4.04 M/mcL (4.00-5.20); Red Cell Distribution Width 13.2 % (11.5-14.5); WBC 11.1 K/mcL (4.5-11.0)
[2020-05-20 07:30] LABS: ALT/SGPT 14 U/L (<40); AST/SGOT 18 U/L (<32); Albumin 3.9 gm/dL (3.2-5.2); Albumin/Globulin Ratio 2.2 (1.0-2.3); Alkaline Phosphatase 81 U/L (39-117); Bilirubin,Direct < 0.2 mg/dL (<0.3); Bilirubin,Total 0.4 mg/dL (0.1-1.0); Blood Urea Nitrogen 8 mg/dL (8-23); Calcium 9.6 mg/dL (8.6-10.4); Carbon Dioxide 29 mmol/L (22-30); Chloride 98 mmol/L (96-108); Globulin 1.8 gm/dL (2.2-3.7); Glomerular Filtration Rate 88; Glucose 125 mg/dL (70-105); Lactate Dehydrogenase 245 U/L (135-225); Phosphorous 3.6 mg/dL (2.5-4.5); Triglycerides 57 mg/dL (<150); Uric Acid 3.4 mg/dL (2.5-8.0)
[2020-05-20 07:41] LABS: INR 0.9 (0.9-1.1); Prothrombin Time 12.8 sec (11.9-14.5)
--- NOTE | 2020-05-20 08:53 | General Surgery Progress Note ---
SUBJECTIVE Subjective Patient information: Note initiated : 05/20/20 at 8:51 am Service Date, if different from initiated Date: [] Patient: Mayra Chacon 74 y/o F admitted on 05/19/20 for Fall - Lt Leg/Hip Pain. Chief Complaint: [follow up left hip pain] Constitutional Vitals: Vital Signs Temp Pulse Resp BP Pulse Ox 97.3 F 84 16 136/74 95 05/20/20 07:29 05/20/20 07:29 05/20/20 07:29 05/20/20 07:29 05/20/20 07:29 Period Temp Pulse Resp BP Sys/Winters Pulse Ox Last 24 Hr 97.2 F-99.7 F 76-104 10-24 96-169/52-95 80-100 Intake and Output 05/19/20 05/20/20 05/20/20 21:59 05:59 13:59 Intake Total 1677 340 Output Total 750 200 Balance 927 140 Weight 160 lb 3.2 oz Intake & Output: Intake & Output 05/19/20 05/20/20 05/20/20 21:59 05:59 13:59 Intake Total 1677 340 Output Total 750 200 Balance 927 140 Weight 160 lb 3.2 oz Intake: IV 617 Lactated Ringers 1,000 ml @ 250 517 mls/hr IV .Q4H COUNTS INCLUDE 234 BEDS AT THE [facility] Rx#: [id number] Oral 960 340 IV - Manual Only 100 Output: Urine Catheter Amount 750 200 Other: Meal Dinner Percent of Meal Consumed 50% Feeding Ability Independent Urine Appearance Clear Clear Uretheral (French) Clear Urine Color Pale Dark Yellow Uretheral (French) Pale Urine Odor Uretheral (French) Normal Extremities Exam Extremities exam: Present normal capillary refill, normal inspection, tenderness and neurovascular intact; Absent calf tenderness A/P Narrative A/P Narrative: pod 1 s/p left hip closed reduction, percutaneous screw fixation 50% wb pain control dvt prophylaxis d/c planning - likely need rehab Time Spent With Patient Time: Total time spent is greater than 50% in coordination of care (as documented) at patient's floor/unit and/or counseling patient:
[2020-05-20] MEDS: BUDESONIDE 0.5 MG/2 ML AMPUL.NEB NEB SCH ×2 (09:01→20:31)
[2020-05-20] MEDS: OMEPRAZOLE 20 MG CAPSULE PO SCH (09:06)
[2020-05-20] MEDS: MEMANTINE 10 MG TABLET PO SCH (09:07)
[2020-05-20] MEDS: OXYBUTYNIN CHLORIDE 5 MG TAB.XL.24H PO SCH (09:07)
[2020-05-20] MEDS: DULoxetine 30 MG CAPSULE PO SCH (09:09)
[2020-05-20] MEDS: clonazePAM 0.5 MG TABLET PO SCH ×4 (09:09→20:14)
[2020-05-20] MEDS: LOSARTAN 25 MG TABLET PO SCH (09:10)
[2020-05-20] MEDS: DOCUSATE SODIUM 100 MG CAPSULE PO SCH ×2 (09:10→20:14)
[2020-05-20] MEDS: VITAMIN D3 1,000 UNIT TABLET PO SCH ×2 (09:10→20:14)
[2020-05-20] MEDS: MONTELUKAST 10 MG TABLET PO SCH (09:10)
[2020-05-20] MEDS: ACETAMINOPHEN 325 MG TABLET PO PRN ×2 (09:10→15:48)
[2020-05-20] MEDS: hydrOXYzine 25 MG TABLET PO PRN ×2 (09:22→13:19)
[2020-05-20] MEDS: ONDANSETRON 4 MG ODT TABLET SL PRN ×2 (09:30→13:18)
--- NOTE | 2020-05-20 09:36 | Internal Med Progress Note ---
SUBJECTIVE Subjective Patient information: Note initiated : 05/20/20 at 9:32 am Service Date, if different from initiated Date: [] Patient: Mayra Chacon a 74 y/o F admitted on 05/19/20 for Fall - Lt Leg/Hip Pain. Chief Complaint: History of present illness: Ms. Chacon is a 74 year old F with a history of COPD/anxiety/TIA/HTN/dementia who presents to the ER following a mechanical fall at home. Patient apparently tripped and fell landing on her left side experiencing severe pain. She was brought into the ER for evaluation. Patient denies any precipitating events including lightheadedness, thunderclap headache, double vision or loss of consciousness or seizure episode. Initial work-up in the ER was consistent with left hip fracture. Orthopedic was consulted and patient was taken to surgery from ER. Hospitalist service was consulted postoperative for management of medical issues/admission for continued care Patient was seen immediately postoperative in stable state. She is alert and able to answer questions. She endorses history as above. She denies chest pain, lightheadedness, unilateral weakness. She denies recent hospitalization. She denies fever chills or Covid exposure 05/20-patient postop day 1 doing well. Very emotionally labile. Denies pain with adequate control. Ongoing physical therapy. Anticipate discharge to SNF per Ortho recommendations. Postop care/BB recommendations per orthopedics. No overnight fever chills or concerns per staff. Constitutional Vitals: Vital Signs Temp Pulse Resp BP Pulse Ox 97.3 F 95 H 16 136/74 93 05/20/20 07:29 05/20/20 09:04 05/20/20 09:04 05/20/20 07:29 05/20/20 09:02 Period Temp Pulse Resp BP Sys/Winters Pulse Ox Last 24 Hr 97.2 F-99.7 F 76-104 10-24 96-169/52-95 80-100 Intake and Output 05/19/20 05/20/20 05/20/20 21:59 05:59 13:59 Intake Total 1677 340 100 Output Total 750 200 Balance 927 140 100 Weight 72.665 kg Postop day well doing well emotionally labile Nonlabored breathing Surgery site dressing with no oozing Intake & Output: Intake & Output 05/19/20 05/20/20 05/20/20 21:59 05:59 13:59 Intake Total 1677 340 100 Output Total 750 200 Balance 927 140 100 Weight 72.665 kg Intake: IV 617 Lactated Ringers 1,000 ml @ 250 517 mls/hr IV .Q4H [facility] Rx#: [id number] Oral 960 340 100 IV - Manual Only 100 Output: Urine Catheter Amount 750 200 Other: Meal Dinner Breakfast Percent of Meal Consumed 50% 25% Feeding Ability Independent Independent Urine Appearance Clear Clear Uretheral (French) Clear Urine Color Pale Dark Yellow Uretheral (French) Pale Urine Odor Uretheral (French) Normal OBJ DATA Labs CBC & Chem 7: 05/20/20 05:40 05/20/20 05:40 Labs: Abnormal Lab Results 05/20/20 05/20/20 05/19/20 05:40 05:40 12:17 WBC 11.1 H Hgb 11.9 L Neut % (Auto) 86.6 H Lymph % (Auto) 7.6 L Lymph # (Auto) 0.84 L Absolute Neutrophils 9.61 H Carbon Dioxide 32 H BUN 7 L Glucose 125 H Lactate Dehydrogenase 245 H Total Protein 5.7 L Globulin 1.8 L Ur Leukocyte Esterase Urine Mucus 05/19/20 05/19/20 12:17 12:12 WBC Hgb Neut % (Auto) 78.7 H Lymph % (Auto) 14.7 L Lymph # (Auto) 1.31 L Absolute Neutrophils Carbon Dioxide BUN Glucose Lactate Dehydrogenase Total Protein Globulin Ur Leukocyte Esterase 25 A Urine Mucus Few A Meds: Medications Acetaminophen (Tylenol) 650 mg PO Q4-6HP PRN; Protocol PRN Reason: Per Pain Protocol/Fever > 101 Last Admin: 05/20/20 09:10 Dose: 650 mg Documented by: Hydrocodone Bitart/Acetaminophen ([place] 10/325mg) 0 tab PO Q4HP PRN; Protocol PRN Reason: Per Pain Protocol Albuterol/Ipratropium (Duoneb) 3 ml NEB Q4HP PRN PRN Reason: Shortness Of Breath Atorvastatin Calcium (Lipitor) 40 mg PO QHS [facility] Last Admin: 05/19/20 20:56 Dose: 40 mg Documented by: Bisacodyl (Dulcolax) 10 mg HI Q2-3DAYS PRN PRN Reason: Constipation Budesonide (Pulmicort) 0.5 mg NEB Q12 [facility] Last Admin: 05/20/20 09:01 Dose: 0.5 mg Documented by: Calcium Chloride (Calcium Chloride) 1,000 mg IV ONCE PRN PRN Reason: CA+ = or < 7.8 Stop: 05/20/20 12:00 Clonazepam (Klonopin) 0.5 mg PO QID [facility] Last Admin: 05/20/20 09:09 Dose: 0.5 mg Documented by: Docusate Sodium (Colace) 100 mg PO BID [facility] Last Admin: 05/20/20 09:10 Dose: 100 mg Documented by: Duloxetine HCl (Cymbalta) 60 mg PO DAILY [facility] Last Admin: 05/20/20 09:09 Dose: 30 mg Documented by: Hydralazine HCl (Apresoline) 10 mg IV Q4-6HP PRN PRN Reason: Hypertension Hydromorphone HCl (Dilaudid) 0.25 - 0.5 mg IV Q4HP PRN; Protocol PRN Reason: Per Pain Protocol Hydroxyzine HCl (Atarax) 25 mg PO TIDP PRN PRN Reason: anxiety Last Admin: 05/20/20 09:22 Dose: 25 mg Documented by: Lactated Ringer's (Lactated Ringers) 1,000 mls @ 100 mls/hr IV .Q10H [facility] Last Admin: 05/20/20 02:00 Dose: Not Given Documented by: Potassium Chloride 40 meq/ (Dextrose) 520 mls @ 130 mls/hr IV UD PRN PRN Reason: K+ = or < 3.5 Magnesium Sulfate (Magnesium Sulfate) 2 gm in 50 mls @ 50 mls/hr IV UD PRN PRN Reason: MG = or < 1.7 Acetaminophen (Ofirmev) 650 mg in 65 mls @ 130 mls/hr IV Q6HP PRN; Protocol PRN Reason: Per Pain Protocol/Fever > 101 Sodium Chloride (Sodium Chloride 0.9%) 1,000 mls @ 50 mls/hr IV .Q20H [facility] Stop: 05/22/20 04:23 Last Admin: 05/19/20 16:46 Dose: 50 mls/hr Documented by: Losartan Potassium (Cozaar) 25 mg PO QDAY [facility] Last Admin: 05/20/20 09:10 Dose: 25 mg Documented by: Magnesium Hydroxide (Milk Of Magnesia) 30 ml PO BIDP PRN PRN Reason: Constipation Melatonin (Melatonin 3mg Tablet) 3 mg PO HSP PRN PRN Reason: Insomnia Memantine (Namenda) 5 mg PO BID [facility] Last Admin: 05/20/20 09:07 Dose: 5 mg Documented by: Metoprolol Tartrate (Lopressor) 5 mg IV Q5M PRN PRN Reason: Heart Rate > 140 bpm Montelukast Sodium (Singular) 10 mg PO QDAY [facility] Last Admin: 05/20/20 09:10 Dose: 10 mg Documented by: Omeprazole (Prilosec) 40 mg PO ACB [facility] Last Admin: 05/20/20 09:06 Dose: 40 mg Documented by: Ondansetron HCl (Zofran Odt) 4 mg SL Q4HP PRN; Protocol PRN Reason: Nausea And Vomiting Ondansetron HCl (Zofran) 4 mg IV Q4-6HP PRN; Protocol PRN Reason: Nausea And Vomiting Oxybutynin Chloride (Ditropan Xl) 10 mg PO QDAY [facility] Last Admin: 05/20/20 09:07 Dose: 10 mg Documented by: Budesonide- (Formoterol Inhaler) 2 dose INH BID [facility] Last Admin: 05/19/20 21:39 Dose: Not Given Documented by: Polyethylene Glycol (Miralax) 17 gm PO DAILYP PRN PRN Reason: Constipation Potassium Chloride (Klor-Con) 40 meq PO DAILYP PRN PRN Reason: K+ < 3.5 Senna (Senokot) 2 tab PO HS [facility] Last Admin: 05/19/20 20:55 Dose: 2 tab Documented by: Sodium Biphosphate/Sodium Phosphate (Fleets Adult) 1 dose HI Q3-4DAYS PRN PRN Reason: Constipation Sodium Chloride (Saline Flush) 10 ml IV Q8 [facility] Last Admin: 05/19/20 20:59 Dose: Not Given Documented by: Throat Lozenges (Cepacol) 1 lozenge PO PRN PRN PRN Reason: Sore Throat Trazodone HCl (Desyrel) 100 mg PO QHS [facility] Last Admin: 05/19/20 20:56 Dose: 100 mg Documented by: Vitamin D (Vitamin D3) 2,000 unit PO BID [facility] Last Admin: 05/20/20 09:10 Dose: 2,000 unit Documented by: A/P Narrative A/P Narrative: * Left hip fracture-postop day 1 managed per orthopedics * Pain management-per orthopedics Hospitalist consult for management of medical issues * History of hypertension stable on losartan * History depression/anxiety-continue clonazepam/duloxetine/trazodone * GERD continue PPI * History dementia continue memantine * History of reactive disease continue bronchodilators * History of TIA continue statin/Plavix(start 24-hour postoperative) * DVT prophylaxis as per orthopedics Plan * Continue pre-existing medical condition management on home meds as above * Postoperative care/pain management/DVT prophylaxis as per orthopedics * Continue aggressive postoperative rehab * Case management to coordinate placement/discharge planning likely short-term rehab at SNF Time Spent With Patient Time: Total time spent is greater than 50% in coordination of care (as documented) at patient's floor/unit and/or counseling patient: QUALITY VTE Deep Vein Thrombosis/Pulmonary Embolism Present on Admission: No
[2020-05-20] MEDS: 0.9 % SODIUM CHLORIDE 10 ML SYRINGE IV SCH ×3 (12:34→22:32)
[2020-05-20] MEDS: 0.9 % SODIUM CHLORIDE 1,000 ML IV SCH (12:42)
[2020-05-20] MEDS: ATORVASTATIN 40 MG TABLET PO SCH (20:14)
[2020-05-20] MEDS: traZODone HCL 100 MG TABLET PO SCH (20:14)
[2020-05-20] MEDS: SENNOSIDES 1 TABLET PO SCH (20:14)
[2020-05-21] MEDS: 0.9 % SODIUM CHLORIDE 10 ML SYRINGE IV SCH ×3 (06:31→21:14)
[2020-05-21 06:56] LABS: Basophils # (Auto) 0.02 K/mcL (0.00-0.20); Basophils % (Auto) 0.2 % (0.0-2.0); Eosinophils # (Auto) 0.29 K/mcL (0.00-0.70); Eosinophils % (Auto) 3.2 % (0.0-7.0); Hematocrit 35.8 % (36.0-48.0); Hemoglobin 11.4 g/dL (12.0-15.0); Lymphocytes # (Auto) 1.95 K/mcL (1.50-4.80); Lymphocytes % (Auto) 21.7 % (15.0-49.0); Mean Cell Volume 91.8 fL (80.0-100.0); Mean Corpuscular HGB Conc 31.8 g/dL (31.0-36.0); Mean Platelet Volume 9.5 fL (7.4-10.4); Monocytes # (Auto) 0.69 K/mcL (0.10-0.90); Monocytes % (Auto) 7.7 % (1.0-12.0); Neutrophils % (Auto) 67.2 % (38.0-78.0); Platelet Count 213 K/mcL (140-440); Red Cell Distribution Width 13.7 % (11.5-14.5)
[2020-05-21 07:32] LABS: Prothrombin Time 13.4 sec (11.9-14.5)
[2020-05-21 07:46] LABS: ALT/SGPT 10 U/L (<40); AST/SGOT 13 U/L (<32); Albumin 3.5 gm/dL (3.2-5.2); Albumin/Globulin Ratio 1.7 (1.0-2.3); Alkaline Phosphatase 79 U/L (39-117); Bilirubin,Direct < 0.2 mg/dL (<0.3); Bilirubin,Total 0.4 mg/dL (0.1-1.0); Blood Urea Nitrogen 11 mg/dL (8-23); Calcium 9.2 mg/dL (8.6-10.4); Carbon Dioxide 28 mmol/L (22-30); Chloride 104 mmol/L (96-108); Globulin 2.1 gm/dL (2.2-3.7); Glomerular Filtration Rate 88; Glucose 105 mg/dL (70-105); Lactate Dehydrogenase 190 U/L (135-225); Phosphorous 2.7 mg/dL (2.5-4.5); Triglycerides 97 mg/dL (<150); Uric Acid 3.3 mg/dL (2.5-8.0)
--- NOTE | 2020-05-21 08:16 | XRay Report ---
INDICATION: Interval Change TECHNIQUE: AP portable upright chest x-ray COMPARISON: Previous chest x-rays dated 05/19/2020, 09/09/2015 FINDINGS: Lungs:Again demonstrated is linear density at left lung base. This consistent with chronic scarring and is stable. No new parenchymal infiltrate or mass. Heart, vascular:No significant cardiomegaly. Pulmonary vascularity is normal. No pulmonary edema or pulmonary congestion Mediastinum, damián:No mediastinal widening. No hilar mass Pleura:No pleural fluid. No pleural-based mass or calcification Skeletal:Negative. IMPRESSION: 1. No acute abnormality 2. No interval change Interpreted and Authenticated by: Nghia Mcdermott 05/21/20
[2020-05-21] MEDS: OMEPRAZOLE 20 MG CAPSULE PO SCH (08:17)
[2020-05-21] MEDS: MONTELUKAST 10 MG TABLET PO SCH (08:44)
[2020-05-21] MEDS: OXYBUTYNIN CHLORIDE 5 MG TAB.XL.24H PO SCH (08:44)
[2020-05-21] MEDS: DULoxetine 30 MG CAPSULE PO SCH ×2 (08:45→10:48)
[2020-05-21] MEDS: DOCUSATE SODIUM 100 MG CAPSULE PO SCH ×2 (08:45→21:13)
[2020-05-21] MEDS: MEMANTINE 10 MG TABLET PO SCH (08:45)
[2020-05-21] MEDS: VITAMIN D3 1,000 UNIT TABLET PO SCH ×2 (08:45→21:13)
[2020-05-21] MEDS: clonazePAM 0.5 MG TABLET PO SCH ×4 (08:45→21:13)
[2020-05-21] MEDS: LOSARTAN 25 MG TABLET PO SCH (08:45)
[2020-05-21] MEDS: ACETAMINOPHEN 325 MG TABLET PO PRN ×2 (08:46→15:53)
[2020-05-21] MEDS: hydrOXYzine 25 MG TABLET PO PRN ×2 (08:53→17:01)
[2020-05-21] MEDS: 0.9 % SODIUM CHLORIDE 1,000 ML IV SCH (08:57)
[2020-05-21] MEDS: BUDESONIDE 0.5 MG/2 ML AMPUL.NEB NEB SCH ×2 (09:08→20:37)
--- NOTE | 2020-05-21 09:54 | Internal Med Progress Note ---
SUBJECTIVE Subjective Patient information: Note initiated : 05/21/20 at 9:52 am Service Date, if different from initiated Date: [] Patient: Mayra Chacon a 74 y/o F admitted on 05/19/20 for Fall - Lt Leg/Hip Pain. Chief Complaint: [] Interval history: History of present illness: Ms. Chacon is a 74 year old F with a history of COPD/anxiety/TIA/HTN/dementia who presents to the ER following a mechanical fall at home. Patient apparently tripped and fell landing on her left side experiencing severe pain. She was brought into the ER for evaluation. Patient denies any precipitating events including lightheadedness, thunderclap headache, double vision or loss of consciousness or seizure episode. Initial work-up in the ER was consistent with left hip fracture. Orthopedic was consulted and patient was taken to surgery from ER. Hospitalist service was consulted postoperative for management of medical issues/admission for continued care Patient was seen immediately postoperative in stable state. She is alert and able to answer questions. She endorses history as above. She denies chest pain, lightheadedness, unilateral weakness. She denies recent hospitalization. She denies fever chills or Covid exposure 05/20-patient postop day 1 doing well. Very emotionally labile. Denies pain with adequate control. Ongoing physical therapy. Anticipate discharge to SNF per Ortho recommendations. Postop care/BB recommendations per orthopedics. No overnight fever chills or concerns per staff. 05/21-patient remains emotionally labile but is doing much better than previous day. Pain well controlled. DC French catheter today. Ambulating in underway physical therapy/tolerating diet. Restarted on home medications. White count 9, creatinine 0.6, stable hemodynamics. Anticipate discharge to SNF in 24 hours. Constitutional Vitals: Vital Signs Temp Pulse Resp BP Pulse Ox 98.5 F 97 H 14 129/66 94 05/21/20 03:37 05/21/20 09:11 05/21/20 09:11 05/21/20 08:00 05/21/20 09:09 Period Temp Pulse Resp BP Sys/Winters Pulse Ox Last 24 Hr 98.3 F-99.0 F 79-106 12-18 95-131/53-67 88-94 Intake and Output 05/20/20 05/21/20 05/21/20 21:59 05:59 13:59 Intake Total 3799 794 8833 Output Total 250 475 Balance 950 -275 1000 Weight 74.162 kg Alert oriented Very anxious and tearful Nonlabored breathing Surgery site no swelling or pain Intake & Output: Intake & Output 05/20/20 05/21/20 05/21/20 21:59 05:59 13:59 Intake Total 7580 979 3340 Output Total 250 475 Balance 950 -275 1000 Weight 74.162 kg Intake: IV 1000 Sodium Chloride 0.9% 1,000 ml @ 1000 50 mls/hr IV .Q20H [facility] Rx#: [id number] Oral 1200 200 Output: Urine Catheter Amount 475 Void Amount 250 Other: Meal Dinner Percent of Meal Consumed 100% Feeding Ability Independent Urine Appearance Clear Clear Uretheral (French) Clear Urine Color Bright Yellow Dark Yellow Uretheral (French) Straw Urine Odor Normal OBJ DATA Labs CBC & Chem 7: 05/21/20 06:15 05/21/20 06:15 Labs: Abnormal Lab Results 05/21/20 05/21/20 05/20/20 06:15 06:15 05:40 WBC RBC 3.90 L Hgb 11.4 L Hct 35.8 L Neut % (Auto) Lymph % (Auto) Lymph # (Auto) Absolute Neutrophils Carbon Dioxide BUN Glucose 125 H Lactate Dehydrogenase 245 H Total Protein 5.6 L 5.7 L Globulin 2.1 L 1.8 L Ur Leukocyte Esterase Urine Mucus 05/20/20 05/19/20 05/19/20 05:40 12:17 12:17 WBC 11.1 H RBC Hgb 11.9 L Hct Neut % (Auto) 86.6 H 78.7 H Lymph % (Auto) 7.6 L 14.7 L Lymph # (Auto) 0.84 L 1.31 L Absolute Neutrophils 9.61 H Carbon Dioxide 32 H BUN 7 L Glucose Lactate Dehydrogenase Total Protein Globulin Ur Leukocyte Esterase Urine Mucus 05/19/20 12:12 WBC RBC Hgb Hct Neut % (Auto) Lymph % (Auto) Lymph # (Auto) Absolute Neutrophils Carbon Dioxide BUN Glucose Lactate Dehydrogenase Total Protein Globulin Ur Leukocyte Esterase 25 A Urine Mucus Few A Meds: Medications Acetaminophen (Tylenol) 650 mg PO Q4-6HP PRN; Protocol PRN Reason: Per Pain Protocol/Fever > 101 Last Admin: 05/21/20 08:46 Dose: 650 mg Documented by: Hydrocodone Bitart/Acetaminophen ([place] 10/325mg) 0 tab PO Q4HP PRN; Protocol PRN Reason: Per Pain Protocol Albuterol/Ipratropium (Duoneb) 3 ml NEB Q4HP PRN PRN Reason: Shortness Of Breath Atorvastatin Calcium (Lipitor) 40 mg PO QHS [facility] Last Admin: 05/20/20 20:14 Dose: 40 mg Documented by: Bisacodyl (Dulcolax) 10 mg ND Q2-3DAYS PRN PRN Reason: Constipation Budesonide (Pulmicort) 0.5 mg NEB Q12 [facility] Last Admin: 05/21/20 09:08 Dose: 0.5 mg Documented by: Clonazepam (Klonopin) 0.5 mg PO QID [facility] Last Admin: 05/21/20 08:45 Dose: 0.5 mg Documented by: Clopidogrel Bisulfate (Plavix) 75 mg PO QDAY [facility] Docusate Sodium (Colace) 100 mg PO BID [facility] Last Admin: 05/21/20 08:45 Dose: 100 mg Documented by: Duloxetine HCl (Cymbalta) 60 mg PO DAILY [facility] Last Admin: 05/21/20 08:45 Dose: 30 mg Documented by: Hydralazine HCl (Apresoline) 10 mg IV Q4-6HP PRN PRN Reason: Hypertension Hydromorphone HCl (Dilaudid) 0.25 - 0.5 mg IV Q4HP PRN; Protocol PRN Reason: Per Pain Protocol Hydroxyzine HCl (Atarax) 25 mg PO TIDP PRN PRN Reason: anxiety Last Admin: 05/21/20 08:53 Dose: 25 mg Documented by: Potassium Chloride 40 meq/ (Dextrose) 520 mls @ 130 mls/hr IV UD PRN PRN Reason: K+ = or < 3.5 Magnesium Sulfate (Magnesium Sulfate) 2 gm in 50 mls @ 50 mls/hr IV UD PRN PRN Reason: MG = or < 1.7 Acetaminophen (Ofirmev) 650 mg in 65 mls @ 130 mls/hr IV Q6HP PRN; Protocol PRN Reason: Per Pain Protocol/Fever > 101 Sodium Chloride (Sodium Chloride 0.9%) 1,000 mls @ 50 mls/hr IV .Q20H [facility] Stop: 05/22/20 04:23 Last Admin: 05/21/20 08:57 Dose: 50 mls/hr Documented by: Losartan Potassium (Cozaar) 25 mg PO QDAY [facility] Last Admin: 05/21/20 08:45 Dose: 25 mg Documented by: Magnesium Hydroxide (Milk Of Magnesia) 30 ml PO BIDP PRN PRN Reason: Constipation Melatonin (Melatonin 3mg Tablet) 3 mg PO HSP PRN PRN Reason: Insomnia Memantine (Namenda) 5 mg PO DAILY [facility] Last Admin: 05/21/20 08:45 Dose: 5 mg Documented by: Metoprolol Tartrate (Lopressor) 5 mg IV Q5M PRN PRN Reason: Heart Rate > 140 bpm Montelukast Sodium (Singular) 10 mg PO QDAY [facility] Last Admin: 05/21/20 08:44 Dose: 10 mg Documented by: Omeprazole (Prilosec) 40 mg PO ACB [facility] Last Admin: 05/21/20 08:17 Dose: 40 mg Documented by: Ondansetron HCl (Zofran Odt) 4 mg SL Q4HP PRN; Protocol PRN Reason: Nausea And Vomiting Last Admin: 05/20/20 13:18 Dose: 4 mg Documented by: Ondansetron HCl (Zofran) 4 mg IV Q4-6HP PRN; Protocol PRN Reason: Nausea And Vomiting Oxybutynin Chloride (Ditropan Xl) 10 mg PO QDAY [facility] Last Admin: 05/21/20 08:44 Dose: 10 mg Documented by: Budesonide- (Formoterol Inhaler) 2 dose INH BID [facility] Last Admin: 05/20/20 20:18 Dose: Not Given Documented by: Polyethylene Glycol (Miralax) 17 gm PO DAILYP PRN PRN Reason: Constipation Last Admin: 05/21/20 08:53 Dose: 17 gm Documented by: Potassium Chloride (Klor-Con) 40 meq PO DAILYP PRN PRN Reason: K+ < 3.5 Senna (Senokot) 2 tab PO HS [facility] Last Admin: 05/20/20 20:14 Dose: 2 tab Documented by: Sodium Biphosphate/Sodium Phosphate (Fleets Adult) 1 dose ND Q3-4DAYS PRN PRN Reason: Constipation Sodium Chloride (Saline Flush) 10 ml IV Q8 [facility] Last Admin: 05/21/20 06:31 Dose: Not Given Documented by: Throat Lozenges (Cepacol) 1 lozenge PO PRN PRN PRN Reason: Sore Throat Last Admin: 05/20/20 20:17 Dose: 1 lozenge Documented by: Trazodone HCl (Desyrel) 100 mg PO QHS [facility] Last Admin: 05/20/20 20:14 Dose: 100 mg Documented by: Vitamin D (Vitamin D3) 2,000 unit PO BID [facility] Last Admin: 05/21/20 08:45 Dose: 2,000 unit Documented by: A/P Narrative A/P Narrative: * Left hip fracture-postop day 2 managed per orthopedics * Postoperative pain -stable and managed per orthopedics Hospitalist consult for management of medical issues * History of hypertension well-controlled on home dose losartan * History depression/anxiety-labile affect however improved on home dose clonazepam/duloxetine/trazodone * GERD continue PPI * History dementia stable on memantine * History of reactive disease continue bronchodilators * History of TIA continue statin/Plavix(start 24-hour postoperative) * DVT prophylaxis as per orthopedics Plan * Continue pre-existing medical condition management on home meds as above * Postoperative care/pain management/DVT prophylaxis as per orthopedics * Continue aggressive postoperative rehab, anticipate SNF transfer in 24 hours * Case management to coordinate placement for short-term rehab Time Spent With Patient Time: Total time spent is greater than 50% in coordination of care (as documented) at patient's floor/unit and/or counseling patient: QUALITY VTE Deep Vein Thrombosis/Pulmonary Embolism Present on Admission: No
[2020-05-21] MEDS: BREXPIPRAZOLE 4 MG PO SCH (10:52)
[2020-05-21] MEDS: lamoTRIgine 100 MG TABLET PO SCH (10:52)
[2020-05-21] MEDS: AMITRIPTYLINE 25 MG TABLET PO SCH (10:52)
[2020-05-21] MEDS: CLOPIDOGREL 75 MG TABLET PO SCH (10:57)
--- NOTE | 2020-05-21 14:20 | General Surgery Progress Note ---
SUBJECTIVE Subjective Patient information: Note initiated : 05/21/20 at 2:18 pm Service Date, if different from initiated Date: [] Patient: Mayra Chacon 74 y/o F admitted on 05/19/20 for Fall - Lt Leg/Hip Pain. Chief Complaint: [pod 1 s/p left hip perc screw fixation] Constitutional Vitals: Vital Signs Temp Pulse Resp BP Pulse Ox 98.8 F 96 H 18 114/64 96 05/21/20 12:00 05/21/20 12:00 05/21/20 12:00 05/21/20 12:00 05/21/20 12:00 Period Temp Pulse Resp BP Sys/Winters Pulse Ox Last 24 Hr 98.3 F-99.0 F 79-106 12-18 95-129/53-66 88-96 Intake and Output 05/21/20 05/21/20 05/21/20 05:59 13:59 21:59 Intake Total 200 1480 Output Total 475 750 Balance -275 730 Intake & Output: Intake & Output 05/21/20 05/21/20 05/21/20 05:59 13:59 21:59 Intake Total 200 1480 Output Total 475 750 Balance -275 730 Intake: IV 1000 Sodium Chloride 0.9% 1,000 ml @ 1000 50 mls/hr IV .Q20H [facility] Rx#: [id number] Oral 200 480 Output: Urine Catheter Amount 475 750 Other: Meal Nourishment/Supplement Percent of Meal Consumed 100% Feeding Ability Independent Urine Appearance Clear Urine Color Dark Yellow Bright Yellow Extremities Exam Extremities exam: Present normal capillary refill, normal inspection, tenderness, Foot pink and warm and neurovascular intact; Absent calf tenderness and joint swelling A/P Narrative A/P Narrative: pod 2 s/p left hip closed reduction perc screw fixation 50% weight bearing pain control likely rehab tomorrow dvt prophylaxis Time Spent With Patient Time: Total time spent is greater than 50% in coordination of care (as documented) at patient's floor/unit and/or counseling patient:
[2020-05-21] MEDS: ONDANSETRON 4 MG ODT TABLET SL PRN (14:48)
[2020-05-21] MEDS: SENNOSIDES 1 TABLET PO SCH (21:13)
[2020-05-21] MEDS: ATORVASTATIN 40 MG TABLET PO SCH (21:13)
[2020-05-21] MEDS: traZODone HCL 100 MG TABLET PO SCH (21:13)
[2020-05-22] MEDS: ACETAMINOPHEN 325 MG TABLET PO PRN (02:02)
[2020-05-22] MEDS: 0.9 % SODIUM CHLORIDE 10 ML SYRINGE IV SCH (04:03)
[2020-05-22 06:19] LABS: Basophils # (Auto) 0.03 K/mcL (0.00-0.20); Basophils % (Auto) 0.4 % (0.0-2.0); Eosinophils # (Auto) 0.24 K/mcL (0.00-0.70); Eosinophils % (Auto) 3.3 % (0.0-7.0); Hematocrit 33.7 % (36.0-48.0); Hemoglobin 10.9 g/dL (12.0-15.0); Lymphocytes # (Auto) 1.66 K/mcL (1.50-4.80); Mean Cell Volume 93.1 fL (80.0-100.0); Mean Corpuscular HGB Conc 32.3 g/dL (31.0-36.0); Mean Platelet Volume 9.8 fL (7.4-10.4); Monocytes # (Auto) 0.64 K/mcL (0.10-0.90); Monocytes % (Auto) 8.9 % (1.0-12.0); Neutrophils % (Auto) 64.4 % (38.0-78.0); Platelet Count 193 K/mcL (140-440); RBC 3.62 M/mcL (4.00-5.20); Red Cell Distribution Width 13.4 % (11.5-14.5); WBC 7.2 K/mcL (4.5-11.0)
[2020-05-22 06:43] LABS: ALT/SGPT 9 U/L (<40); AST/SGOT 14 U/L (<32); Albumin 3.2 gm/dL (3.2-5.2); Albumin/Globulin Ratio 1.5 (1.0-2.3); Alkaline Phosphatase 71 U/L (39-117); Bilirubin,Direct < 0.2 mg/dL (<0.3); Bilirubin,Total 0.3 mg/dL (0.1-1.0); Blood Urea Nitrogen 8 mg/dL (8-23); Calcium 9.1 mg/dL (8.6-10.4); Carbon Dioxide 30 mmol/L (22-30); Chloride 104 mmol/L (96-108); Globulin 2.2 gm/dL (2.2-3.7); Glomerular Filtration Rate 94; Glucose 123 mg/dL (70-105); Lactate Dehydrogenase 195 U/L (135-225); Phosphorous 2.8 mg/dL (2.5-4.5); Triglycerides 87 mg/dL (<150); Uric Acid 3.1 mg/dL (2.5-8.0)
[2020-05-22 06:46] LABS: Prothrombin Time 13.4 sec (11.9-14.5)
[2020-05-22] MEDS: OMEPRAZOLE 20 MG CAPSULE PO SCH (07:21)
[2020-05-22] MEDS: lamoTRIgine 100 MG TABLET PO SCH (08:18)
[2020-05-22] MEDS: AMITRIPTYLINE 25 MG TABLET PO SCH (08:18)
[2020-05-22] MEDS: MEMANTINE 10 MG TABLET PO SCH (08:19)
[2020-05-22] MEDS: OXYBUTYNIN CHLORIDE 5 MG TAB.XL.24H PO SCH (08:19)
[2020-05-22] MEDS: MONTELUKAST 10 MG TABLET PO SCH (08:19)
[2020-05-22] MEDS: VITAMIN D3 1,000 UNIT TABLET PO SCH (08:19)
[2020-05-22] MEDS: BREXPIPRAZOLE 4 MG PO SCH (08:20)
[2020-05-22] MEDS: DULoxetine 30 MG CAPSULE PO SCH (08:20)
[2020-05-22] MEDS: LOSARTAN 25 MG TABLET PO SCH (08:20)
[2020-05-22] MEDS: DOCUSATE SODIUM 100 MG CAPSULE PO SCH (08:20)
[2020-05-22] MEDS: CLOPIDOGREL 75 MG TABLET PO SCH (08:20)
[2020-05-22] MEDS: clonazePAM 0.5 MG TABLET PO SCH ×2 (08:20→13:27)
[2020-05-22] MEDS: BUDESONIDE 0.5 MG/2 ML AMPUL.NEB NEB SCH (09:06)
--- NOTE | 2020-05-22 11:52 | Discharge Summary ---
Discharge Provider Provider Patient information: Note initiated : 05/22/20 at 11:46 am Service Date, if different from initiated Date: [] Patient: Mayra Chacon a 74 y/o F admitted on 05/19/20 for Fall - Lt Leg/Hip Pain. Discharge diagnosis * Left hip fracture-postop day 3. Doing well. Discharging to SNF for continued post operative rehab. * Postoperative pain -well-controlled. * History of hypertension well-controlled on home dose losartan * History depression/anxiety-labile affect however improved on home dose clonazepam/duloxetine/trazodone * GERD continue PPI * History dementia stable on memantine * History of reactive disease remained stable on bronchodilators * History of TIA continue statin/Plavix * DVT prophylaxis as per orthopedics Brief hospital course Interval history: History of present illness: Ms. Chacon is a 74 year old F with a history of COPD/anxiety/TIA/HTN/dementia who presents to the ER following a mechanical fall at home. Patient apparently tripped and fell landing on her left side experiencing severe pain. She was brought into the ER for evaluation. Patient denies any precipitating events including lightheadedness, thunderclap headache, double vision or loss of consciousness or seizure episode. Initial work-up in the ER was consistent with left hip fracture. Orthopedic was consulted and patient was taken to surgery from ER. Hospitalist service was consulted postoperative for management of medical issues/admission for continued care Patient was seen immediately postoperative in stable state. She is alert and able to answer questions. She endorses history as above. She denies chest pa in, lightheadedness, unilateral weakness. She denies recent hospitalization. She denies fever chills or Covid exposure 05/20-patient postop day 1 doing well. Very emotionally labile. Denies pain w ith adequate control. Ongoing physical therapy. Anticipate discharge to SNF per Ortho recommendations. Postop care/BB recommendations per orthopedics. No overnight fever chills or concerns per staff. 05/21-patient remains emotionally labile but is doing much better than previous day. Pain well controlled. DC French catheter today. Ambulating in underway physical therapy/tolerating diet. Restarted on home medications. White count 9, creatinine 0.6, stable hemodynamics. Anticipate discharge to SNF in 24 hours. 05/22-patient clinically improved. No overnight events. Feeling a lot better. Remains emotionally labile however per family at baseline. Discharging to [facility] for continued posthospitalization rehab/directed therapies following hip fracture. Continue home medications and follow-up primary care physician for management of long-term issues. Date of admission: 05/19/20 16:16 Discharge date: 05/22/20 Primary care physician: Jaswinder Mac Consults: 05/19/20 13:48 Consult to Physician [CONS] Stat Comment: Consulting Provider: Naun Prajapati Reason For Exam: Physician to Consult Consult to Physician [CONS] Stat Comment: Consulting Provider: Nghia Cui Reason For Exam: Physician to Consult Discharge Meds Discharge Medications Home Medications cholecalciferol (vitamin D3) 50 mcg (2,000 unit) capsule 2,000 unit PO BID #60 cap 12/28/15 [Rx Confirmed 05/19/20 Last Taken Unknown] budesonide-formoterol HFA 160 mcg-4.5 mcg/actuation aerosol inhaler 2 inh INHAL ATION .COMPLEX #10.2 g 07/04/17 [Rx Confirmed 05/19/20 Last Taken Unknown] clopidogrel 75 mg tablet 75 mg PO QDAY #30 tab 09/05/17 [Rx Confirmed 05/19/20 Last Taken Unknown] omeprazole 40 mg capsule,delayed release 40 mg PO QDAY #90 cap 01/08/18 [Rx Confirmed 05/19/20 Last Taken Unknown] montelukast 10 mg tablet 10 mg PO QDAY #90 tab 01/14/18 [Rx Confirmed 05/19/20 Last Taken Unknown] losartan 25 mg tablet 25 mg PO QDAY #90 tab 01/30/18 [Rx Confirmed 05/19/20 Last Taken Unknown] atorvastatin 40 mg tablet 40 mg PO QHS 09/20/19 [History Confirmed 05/19/20 Last Taken Unknown] trazodone 100 mg tablet 100 mg PO QHS 09/20/19 [History Confirmed 05/19/20 Last Taken Unknown] hydroxyzine pamoate 25 mg capsule 25 mg PO TID PRN #60 cap 10/13/19 [Rx Confirmed 05/19/20 Last Taken Unknown] clonazepam 0.5 mg tablet 0.5 mg PO QID #120 tab 11/02/19 [Rx Confirmed 05/19/20 Last Taken Unknown] hydrocodone-acetaminophen 1 - 2 tab PO Q4H PRN #60 tab 05/19/20 [Rx Last Taken Unknown] amitriptyline See Rx Instructions .ROUTE .COMPLEX 05/20/20 [History Confirmed 05/20/20 Last Taken Unknown] docusate sodium [Colace] 100 mg PO BID 05/20/20 [History Confirmed 05/20/20 Last Taken Unknown] duloxetine See Rx Instructions .ROUTE .COMPLEX 05/20/20 [History Confirmed 05/20/20 Last Taken Unknown] lamotrigine 200 mg PO DAILY 05/20/20 [History Confirmed 05/20/20 Last Taken Unknown] memantine 5 mg PO QAM 05/20/20 [History Confirmed 05/20/20 Last Taken Unknown] Rexulti 2 mg PO QDAY 05/21/20 [History Confirmed 05/21/20 Last Taken Unknown] COURSE Hospital Course Hospital course: . Discharge diagnosis: Left hip fracture Time Spent with Patient Time attestation: Total time spent providing and/or coordinating discharge services: EXAM Constitutional Vitals: Temp Pulse Resp BP Pulse Ox 97.2 F 90 14 114/71 93 05/22/20 06:36 05/22/20 09:07 05/22/20 09:07 05/22/20 06:36 05/22/20 09:07 Discharge Data Data Completed and Pending Labs on day of discharge: Labs from last 24 hours 05/22/20 05/22/20 05/22/20 05:32 05:32 05:32 WBC 7.2 RBC 3.62 L Hgb 10.9 L Hct 33.7 L MCV 93.1 MCH 30.1 MCHC 32.3 RDW 13.4 Plt Count 193 MPV 9.8 Neut % (Auto) 64.4 Lymph % (Auto) 23.0 [place] % (Auto) 8.9 Eos % (Auto) 3.3 Baso % (Auto) 0.4 Lymph # (Auto) 1.66 [place] # (Auto) 0.64 Eos # (Auto) 0.24 Baso # (Auto) 0.03 Absolute Neutrophils 4.64 PT 13.4 INR 1.0 Sodium 142 Potassium 3.8 Chloride 104 Carbon Dioxide 30 Anion Gap 8.0 BUN 8 Creatinine 0.5 L GFR Calculation 94 Glucose 123 H Uric Acid 3.1 Calcium 9.1 Phosphorus 2.8 Magnesium 1.8 Total Bilirubin 0.3 Direct Bilirubin < 0.2 GGT 14 AST 14 ALT 9 Alkaline Phosphatase 71 Lactate Dehydrogenase 195 Total Protein 5.4 L Albumin 3.2 Globulin 2.2 Albumin/Globulin Ratio 1.5 Triglycerides 87 Discharge Plan Patient/Caregiver Discharge Instructions Activity: ambulate only with your walker, as per physical therapy and other Diet: Regular Diet Activity Restrictions/Additional Instructions: Continue aggressive PT OT ST eval and treatments at SNF Early mobilization Pre-existing medical condition management to continue on home medications DVT prophylaxis as per orthopedics Prescriptions: New hydrocodone-acetaminophen 10-325 mg Tablet 1 - 2 tab PO Q4H PRN (Reason: Pain) Qty: 60 RF: 0 Continued atorvastatin 40 mg tablet 40 mg PO QHS RF: 0 trazodone 100 mg tablet 100 mg PO QHS RF: 0 clonazepam 0.5 mg tablet 0.5 mg PO QID Qty: 120 RF: 0 hydroxyzine pamoate [Vistaril] 25 mg capsule 25 mg PO TID PRN (Reason: anxiety) Qty: 60 RF: 0 cholecalciferol (vitamin D3) 2,000 unit capsule 2,000 unit PO BID Qty: 60 RF: 0 budesonide-formoterol 160-4.5 mcg/actuation HFA aerosol inhaler 2 inh INHALATION .COMPLEX Qty: 10.2 RF: 12 clopidogrel 75 mg tablet 75 mg PO QDAY Qty: 30 RF: 12 omeprazole 40 mg capsule,delayed release(DR/EC) 40 mg PO QDAY Qty: 90 RF: 3 montelukast 10 mg tablet 10 mg PO QDAY Qty: 90 RF: 3 losartan 25 mg tablet 25 mg PO QDAY Qty: 90 RF: 3 docusate sodium [Colace] 100 mg Capsule 100 mg PO BID RF: 0 amitriptyline 25 mg tablet See Rx Instructions .ROUTE .COMPLEX RF: 0 duloxetine 30 mg capsule,delayed release(DR/EC) See Rx Instructions .ROUTE .COMPLEX RF: 0 lamotrigine 200 mg Tablet 200 mg PO DAILY RF: 0 memantine 5 mg Tablet 5 mg PO QAM RF: 0 Rexulti 4 mg Tablet 2 mg PO QDAY RF: 0 Other Ambulatory Orders: OT Discharge Order (Routine) Location: None Selected Ordered By: Nghia Cui Physical Therapy DC - General (Routine) Location: None Selected Ordered By: Nghia Cui Follow Up Plan Follow up with: Jaswinder Mac MD [Primary Care Provider] - Patient Disposition: Xfer SNF Rehab Potential: Good I certify that the patient requires SNF services: Yes Overall status at discharge: patient is progressing back to baseline Discharge Orders: Discharge Order (Routine); Ordered 05/22/20 Ordered By: Naun GUILLEN VTE Deep Vein Thrombosis/Pulmonary Embolism Present on Admission: No
[2020-05-25] MEDS ORDERED: AMITRIPTYLINE 25 MG TABLET PO SCH (09:00)
[2020-05-27] MEDS ORDERED: DULoxetine 30 MG CAPSULE PO SCH (09:00)
== END 2020-05-22 14:40 | DRG 482 ==
LOC: ED 11:14 → SUR 14:25 → MEDSUR 16:16
PROVIDERS: ADMIT Internal Medicine; ATTEND Internal Medicine

== ENCOUNTER 2023-08-26 08:39 | Inpatient (IN) ==
[2023-08-26] MEDS ORDERED: IOPAMIDOL 100 ML BOTTLE IV ONE (08:40)
[2023-08-26 09:32] LABS: Basophils # (Auto) 0.02 K/mcL (0.00-0.30); Basophils % (Auto) 0.2 % (0.0-2.0); Eosinophils # (Auto) 0 K/mcL (0.00-0.70); Eosinophils % (Auto) 0 % (0.0-7.0); Hematocrit 17.9 % (34.1-44.9); Hemoglobin 4.4 g/dL (11.2-15.7); Lymphocytes # (Auto) 0.93 K/mcL (1.50-4.80); Lymphocytes % (Auto) 10.7 % (15.5-49.0); Mean Corpuscular HGB Conc 24.6 g/dL (31.0-36.0); Mean Platelet Volume 8.6 fL (8.8-12.5); Monocytes # (Auto) 0.64 K/mcL (0.10-0.90); Monocytes % (Auto) 7.3 % (1.0-12.0); Neutrophils % (Auto) 81.6 % (38.0-78.0); Platelet Count 292 K/mcL (140-440); RBC 2.84 M/mcL (3.59-5.38); Red Cell Distribution Width 20.4 % (11.5-14.5); WBC 8.7 K/mcL (4.5-11.0)
[2023-08-26] MEDS: 0.9 % SODIUM CHLORIDE 250 ML IV SCH ×2 (09:41→19:30)
[2023-08-26] MEDS: PANTOPRAZOLE 40 MG VIAL IV ONE (09:41)
[2023-08-26 09:43] LABS: POC Calcium, Ionized 1.27 (1.16-1.32); POC Creatinine 0.7 (0.6-1.2); POC Potassium 3.6 (3.3-5.1)
[2023-08-26 09:44] LABS: ALT/SGPT 10 U/L (<40); AST/SGOT 16 U/L (<32); Albumin/Globulin Ratio 2.1 (1.0-2.3); Alkaline Phosphatase 80 U/L (39-117); Bilirubin,Total 0.3 mg/dL (0.1-1.0); Blood Urea Nitrogen 9 mg/dL (8-23); Calcium 9.3 mg/dL (8.6-10.4); Carbon Dioxide 24 mmol/L (22-30); Chloride 102 mmol/L (96-108); Globulin 1.9 gm/dL (2.2-3.7); Glomerular Filtration Rate 82; Glucose 172 mg/dL (70-105)
[2023-08-26 10:03] LABS: Appearance,Urine Clear (Clear); Bilirubin,Urine Negative (Negative); Color,Urine Yellow; Culture Indicated,Urine No; Glucose,Urine (UA) Negative (Negative); Ketones,Urine Negative (Negative); Leukocyte Esterase,Urine Trace /uL (Negative); Nitrate,Urine Negative (Negative); Protein,Urine Negative (Negative); Specific Gravity,Urine 1.015 (1.000-1.035); Urine Blood Negative ery/mcL (Negative); Urine RBC 0 /hpf (0-3); Urine Squamous Epithelial Cell 0 /hpf (0-4); Urine WBC 1 /hpf (0-4); Urobilinogen,Urine Normal
[2023-08-26 11:10] LABS: Retic Absolute 0.04 M/mcL (0.02-0.10)
[2023-08-26 11:18] LABS: Prothrombin Time 13.6 sec (11.9-14.5)
[2023-08-26] MEDS ORDERED: SENNOSIDES 1 TABLET PO PRN (14:51)
[2023-08-26] MEDS ORDERED: ONDANSETRON 4 MG/2 ML VIAL IV PRN (14:51)
[2023-08-26] MEDS ORDERED: LACTULOSE 20 GM/30 ML ORAL.SOL PO PRN (14:51)
[2023-08-26] MEDS: LACTATED RINGERS 1,000 ML IV SCH (14:52)
[2023-08-26] MEDS: 0.9 % SODIUM CHLORIDE 10 ML SYRINGE IV SCH (15:12)
[2023-08-26] MEDS: hydrOXYzine 25 MG TABLET PO PRN (15:12)
[2023-08-26] MEDS: PANTOPRAZOLE 80 MG in 0.9 % SODIUM CHLORIDE 100 ML IV SCH (15:27)
[2023-08-26] MEDS ORDERED: ENALAPRILAT 1.25 MG/ML VIAL IV PRN (17:34)
[2023-08-26] MEDS ORDERED: CALCIUM CARBONATE 500 MG TAB.CHEW PO PRN (17:40)
[2023-08-26 19:00] LABS: Iron 55 ug/dL (37-145); TIBC Calculation 414 ug/dl (228-428); Transferrin % Saturation 13 % (15-50)
[2023-08-26 19:10] LABS: Ferritin 7.1 ng/mL (30.0-400.0)
[2023-08-26] MEDS: POTASSIUM CHLORIDE 20 MEQ TABLET PO SCH (20:00)
[2023-08-26] MEDS: clonazePAM 0.5 MG TABLET PO SCH (20:07)
[2023-08-26] MEDS: traZODone HCL 100 MG TABLET PO SCH (20:07)
[2023-08-26] MEDS: ATORVASTATIN 40 MG TABLET PO SCH (20:07)
[2023-08-26] MEDS: PILOCARPINE HCL 5 MG PO SCH (21:26)
[2023-08-26] MEDS: FORMOTEROL INH SCH (21:28)
[2023-08-26] MEDS: MOMETASONE INH SCH (21:28)
[2023-08-26] MEDS: AMITRIPTYLINE 10 MG TABLET PO SCH (21:28)
[2023-08-27] MEDS: HYDROcodone/APAP 10/325MG TABLET PO PRN (00:46)
[2023-08-27 08:04] LABS: Basophils # (Auto) 0.03 K/mcL (0.00-0.30); Basophils % (Auto) 0.3 % (0.0-2.0); Eosinophils # (Auto) 0.03 K/mcL (0.00-0.70); Eosinophils % (Auto) 0.3 % (0.0-7.0); Hematocrit 37.2 % (34.1-44.9); Hemoglobin 10.9 g/dL (11.2-15.7); Lymphocytes # (Auto) 1.74 K/mcL (1.50-4.80); Lymphocytes % (Auto) 18.3 % (15.5-49.0); Mean Cell Volume 73.7 fL (80.0-100.0); Mean Corpuscular HGB Conc 29.3 g/dL (31.0-36.0); Mean Platelet Volume 8.7 fL (8.8-12.5); Monocytes # (Auto) 0.93 K/mcL (0.10-0.90); Monocytes % (Auto) 9.8 % (1.0-12.0); Neutrophils % (Auto) 70.9 % (38.0-78.0); Platelet Count 245 K/mcL (140-440); RBC 5.05 M/mcL (3.59-5.38); Red Cell Distribution Width 25.5 % (11.5-14.5); WBC 9.5 K/mcL (4.5-11.0)
[2023-08-27 08:42] LABS: Hemoglobin A1C 5.9 % Hgb (4.0-6.0)
[2023-08-27] MEDS ORDERED: IRON SUCROSE COMPLEX 100 MG/5 ML VIAL IV SCH (09:00)
[2023-08-27] MEDS: IRON SUCROSE COMPLEX 300 MG in 0.9 % SODIUM CHLORIDE 250 ML IV SCH (09:41)
[2023-08-27] MEDS: lamoTRIgine 100 MG TABLET PO SCH (11:12)
[2023-08-27] MEDS: MONTELUKAST 10 MG TABLET PO SCH (11:13)
[2023-08-27] MEDS: MEMANTINE 10 MG TABLET PO SCH (11:13)
[2023-08-27 12:23] LABS: Hemoglobin 11.8 g/dL (11.2-15.7)
[2023-08-27] MEDS: MIDAZOLAM 2 MG/2 ML VIAL IV SCH (16:08)
[2023-08-27] MEDS: PROPOFOL 200 MG/20 ML VIAL IV SCH (16:08)
[2023-08-27] MEDS: LOSARTAN 25 MG TABLET PO SCH (18:08)
[2023-08-27] MEDS: AMITRIPTYLINE 10 MG TABLET PO SCH (21:37)
[2023-08-27] MEDS: clonazePAM 0.5 MG TABLET PO SCH (21:38)
[2023-08-27] MEDS: traZODone HCL 50 MG TABLET PO SCH (21:38)
[2023-08-28 06:34] LABS: Hematocrit 34.9 % (34.1-44.9); Hemoglobin 10.2 g/dL (11.2-15.7); Mean Cell Volume 74.7 fL (80.0-100.0); Mean Corpuscular HGB Conc 29.2 g/dL (31.0-36.0); Mean Platelet Volume 9.1 fL (8.8-12.5); Platelet Count 241 K/mcL (140-440); RBC 4.67 M/mcL (3.59-5.38); Red Cell Distribution Width 26.1 % (11.5-14.5); WBC 10.6 K/mcL (4.5-11.0)
[2023-08-28] MEDS: PANTOPRAZOLE 80 MG in 0.9 % SODIUM CHLORIDE 100 ML IV SCH (08:53)
[2023-08-28] MEDS: ALBUTEROL SULFATE 60 PUFF INHALER INH PRN (08:54)
[2023-08-28] MEDS: IRON SUCROSE COMPLEX 400 MG in 0.9 % SODIUM CHLORIDE 250 ML IV SCH (10:05)
[2023-08-28] MEDS: IRON SUCROSE COMPLEX 100 MG/5 ML VIAL IV ONE (10:36)
[2023-08-28] MEDS: IRON SUCROSE COMPLEX 300 MG in 0.9 % SODIUM CHLORIDE 250 ML IV SCH (10:37)
[2023-08-28 13:52] VITALS: TEMP 97.7; O2SAT 94
[2023-08-28] MEDS ORDERED: AMITRIPTYLINE 10 MG TABLET PO SCH (21:00)
== END 2023-08-28 15:10 | disposition home or self-care (01) | DRG 812 ==
LOC: ED 08:39 → ICU 14:42 → MEDSUR 08-27 11:51
PROVIDERS: ADMIT Internal Medicine; ATTEND Internal Medicine
PROC: EGDERBE (ICD-10-PCS; 2023-08-27 16:15)

== ENCOUNTER 2024-03-29 20:33 | Inpatient (IN) ==
[2024-03-29 21:43] LABS: Basophils # (Auto) 0.02 K/mcL (0.00-0.30); Basophils % (Auto) 0.2 % (0.0-2.0); Eosinophils # (Auto) 0.12 K/mcL (0.00-0.70); Eosinophils % (Auto) 1.4 % (0.0-7.0); Hematocrit 43.7 % (34.1-44.9); Hemoglobin 13.6 g/dL (11.2-15.7); Lymphocytes # (Auto) 1.98 K/mcL (1.50-4.80); Mean Cell Volume 101.9 fL (80.0-100.0); Mean Corpuscular HGB Conc 31.1 g/dL (31.0-36.0); Mean Platelet Volume 9.6 fL (8.8-12.5); Monocytes # (Auto) 0.71 K/mcL (0.10-0.90); Monocytes % (Auto) 8.2 % (1.0-12.0); Neutrophils % (Auto) 66.9 % (38.0-78.0); Platelet Count 228 K/mcL (140-440); RBC 4.29 M/mcL (3.59-5.38); Red Cell Distribution Width 13.5 % (11.5-14.5); WBC 8.6 K/mcL (4.5-11.0)
[2024-03-29] MEDS: ONDANSETRON 4 MG/2 ML VIAL IV ONE (21:45)
[2024-03-29] MEDS: fentaNYL 100 MCG/2 ML VIAL IV ONE (21:45)
[2024-03-29 21:54] LABS: Alcohol, Blood < 10.1 mg/dL; Alcohol,Blood < 0.010 gm/dL (<0.010)
[2024-03-29 21:54] LABS: ALT/SGPT 15 U/L (<40); AST/SGOT 17 U/L (<32); Albumin 4.5 gm/dL (3.2-5.2); Albumin/Globulin Ratio 2.1 (1.0-2.3); Alkaline Phosphatase 76 U/L (39-117); Bilirubin,Total 0.2 mg/dL (0.1-1.0); Blood Urea Nitrogen 13 mg/dL (8-23); Calcium 9.8 mg/dL (8.6-10.4); Carbon Dioxide 27 mmol/L (22-30); Chloride 101 mmol/L (96-108); Globulin 2.1 gm/dL (2.2-3.7); Glomerular Filtration Rate 82; Glucose 112 mg/dL (70-105); Potassium 3.5 mmol/L (3.3-5.1); Sodium 140 mmol/L (133-145)
[2024-03-29 22:04] LABS: INR 0.9 (0.9-1.1); Prothrombin Time 12.7 sec (11.9-14.5)
[2024-03-29] MEDS: morphine 2 MG/ML VIAL IV ONE (23:21)
[2024-03-30] MEDS ORDERED: ONDANSETRON 4 MG/2 ML VIAL IV PRN (00:18)
[2024-03-30] MEDS ORDERED: ACETAMINOPHEN 160 MG/5 ML ORAL.SOL PO PRN (00:22)
[2024-03-30 00:33] LABS: Appearance,Urine CLEAR (Clear); Bilirubin,Urine Negative (Negative); Color,Urine STRAW; Glucose,Urine (UA) Negative (Negative); Ketones,Urine 5 mg/dL (Negative); Leukocyte Esterase,Urine 500 /uL (Negative); Nitrate,Urine Negative (Negative); Protein,Urine Negative (Negative); Specific Gravity,Urine 1.058 (1.000-1.035); Urine Blood Negative (Negative); Urine RBC 5 /hpf (0-3); Urine Squamous Epithelial Cell < 1 /hpf (0-4); Urine WBC 79 /hpf (0-4); Urobilinogen,Urine Negative
[2024-03-30] MEDS: cefTRIAXone 1 GM VIAL IV ONE (01:00)
[2024-03-30 01:38] LABS: Amphetamine Screen,Urine None detected; Barbiturate Screen,Urine None detected; Benzodiazepines Screen,Urine Suspect positive; Cannabinoid Screen,Urine None detected; Cocaine Screen,Urine None detected; Fentanyl, Urine Screen Suspect Positive; Opiate Screen,Urine None detected; Oxycodone, Urine Screen None detected; Phencyclidine Screen,Urine None detected
[2024-03-30] MEDS: oxyCODONE/APAP 5/325MG TABLET PO PRN (01:59)
[2024-03-30] MEDS ORDERED: IPRATROPIUM/ALBUTEROL 3 ML AMPUL.NEB NEB PRN (08:26)
[2024-03-30] MEDS ORDERED: morphine 4 MG/ML VIAL IV PRN (08:26)
[2024-03-30] MEDS ORDERED: MAGNESIUM SULFATE 2 GM/50 ML BAG IV PRN (08:26)
[2024-03-30] MEDS ORDERED: POLYETHYLENE GLYCOL 3350 17 GM PACKET PO PRN (08:26)
[2024-03-30] MEDS ORDERED: METOCLOPRAMIDE 10 MG/2 ML VIAL IV PRN (08:26)
[2024-03-30] MEDS ORDERED: POTASSIUM CHLORIDE 20 MEQ TABLET PO PRN ×2 (08:26)
[2024-03-30] MEDS ORDERED: POTASSIUM CHLORIDE 40 MEQ in DEXTROSE 5% IN WATER 500 ML IV PRN (08:26)
[2024-03-30] MEDS ORDERED: clonazePAM 0.5 MG TABLET PO PRN (08:39)
[2024-03-30] MEDS: MONTELUKAST 10 MG TABLET PO SCH (08:48)
[2024-03-30] MEDS: LOSARTAN 25 MG TABLET PO SCH (08:48)
[2024-03-30] MEDS: MEMANTINE 10 MG TABLET PO SCH (08:48)
[2024-03-30] MEDS: ENOXAPARIN 40 MG/0.4 ML SYRINGE SQ SCH (08:49)
[2024-03-30] MEDS: OMEPRAZOLE 20 MG CAPSULE PO SCH (08:49)
[2024-03-30] MEDS: DOCUSATE SODIUM 100 MG CAPSULE PO SCH (08:50)
[2024-03-30] MEDS: PILOCARPINE HCL 5 MG PO SCH ×2 (08:57→10:05)
[2024-03-30] MEDS: Dextromethorphan-Quinidine [Nuedexta] 20-10 mg PO SCH ×2 (10:05→11:06)
[2024-03-30] MEDS: 0.9 % SODIUM CHLORIDE 10 ML SYRINGE IV SCH (16:04)
[2024-03-30] MEDS: morphine 2 MG/ML VIAL IV PRN (19:03)
[2024-03-30] MEDS: AMITRIPTYLINE 10 MG TABLET PO SCH (20:18)
[2024-03-30] MEDS: traZODone HCL 100 MG TABLET PO SCH (20:18)
[2024-03-30] MEDS: ATORVASTATIN 40 MG TABLET PO SCH (20:18)
[2024-03-30] MEDS ORDERED: SENNOSIDES 1 TABLET PO PRN (21:00)
[2024-03-31 06:48] LABS: ALT/SGPT 11 U/L (<40); AST/SGOT 14 U/L (<32); Albumin 3.7 gm/dL (3.2-5.2); Albumin/Globulin Ratio 1.7 (1.0-2.3); Alkaline Phosphatase 71 U/L (39-117); Bilirubin,Direct < 0.2 mg/dL (0-0.3); Bilirubin,Total 0.4 mg/dL (0.1-1.0); Blood Urea Nitrogen 11 mg/dL (8-23); Calcium 9.4 mg/dL (8.6-10.4); Carbon Dioxide 28 mmol/L (22-30); Chloride 101 mmol/L (96-108); Globulin 2.2 gm/dL (2.2-3.7); Glomerular Filtration Rate 91; Glucose 108 mg/dL (70-105); Lactate Dehydrogenase 180 U/L (135-225); Phosphorous 2.9 mg/dL (2.5-4.5); Potassium 3.6 mmol/L (3.3-5.1); Sodium 140 mmol/L (133-145); Triglycerides 86 mg/dL (<150); Uric Acid 3.6 mg/dL (2.5-8.0)
[2024-03-31] MEDS: lamoTRIgine 100 MG TABLET PO SCH (08:10)
[2024-04-02 11:06] VITALS: TEMP 97.8; O2SAT 92
== END 2024-04-02 13:08 | DRG 563 ==
LOC: ED 20:33 → MEDSUR 03-30 01:19
PROVIDERS: ADMIT Internal Medicine; ATTEND Internal Medicine